=== PATIENT | female | born 1990 | race Caucasian/White ===

== ENCOUNTER 2019-11-05 05:34 | Inpatient (IN) | payer OTHER, SELFPAY ==
[2019-11-05] VITALS (120 sets, daily range): BP systolic 73–149; BP diastolic 45–126; PULSE 72–175; RESP 16; TEMP 36–36.7; O2SAT 96–100; BMI 41.8
[2019-11-05] MEDS: LACTATED RINGERS 1,000 ML 125 ML IV CONT ×3 (07:10→14:09)
[2019-11-05] MEDS: OXYTOCIN 30 UNITS/NS 500 ML 30 UNITS/500 ML BAG IV CONT (07:12)
--- NOTE | 2019-11-05 07:15 | LDADM ---
This patient, Penny Negrete, was admitted to Labor/Delivery/Recovery 108 on 11/05/19 at 05:34. Plans for labor, pain management and were discussed with patient. Patient/family oriented to hospital policies and general routines including ID bracelet, bed and alarms, visiting hours, pain management, procedures, bathroom and other care routines, personal items, smoking policy, room service/diet and guest tray routines, security routines, and visiting hours. Patient/Family are encouraged to report perceived risks to care and to ask questions if they do not understand what they are told or what they should do. See OBIX for further documentation.
[2019-11-05 07:38] LABS: Basophils Percent Auto 0.3 % (0.2-1.2); Eosinophils Absolute Auto 0.1 K/mm3 (0-0.3); Eosinophils Percent Auto 1.1 % (0-4.4); Hematocrit 34.4 % (37.0-47.0); Hemoglobin 11.3 g/dL (12.0-15.0); Immature Granulocyte Absolute 0.11 K/mm3 (0.00-0.031); Immature Granulocyte Percent A 1.4 % (0-0.5); Lymphocytes Absolute Auto 1.37 K/mm3 (0.9-3.2); Mean Corpuscular HGB Conc 32.8 g/dl (32-36); Mean Corpuscular Volume 94.2 fl (80-100); Mean Platelet Volume 11.8 fl (7.4-10.4); Monocytes Absolute Auto 0.7 K/mm3 (0.1-0.6); Monocytes Percent Auto 9.2 % (2.6-8.5); Neutrophils Absolute Auto 5.3 K/mm3 (1.3-6.7); Platelet Count Result 148 k/mm3 (150-375); Red Blood Count 3.65 M/mm3 (4.2-5.4); Red Cell Distribution Width 15.6 % (11.5-14.5); White Blood Count 7.6 K/mm3 (4.5-10.0)
--- NOTE | 2019-11-05 07:44 | P.PNAN_ITS ---
Anes - Eval Pre Procedure Procedure: Labor epidural Date/Time: 11/05/19 07:44 Surgeon: Grey Lazar M.D. Preop Diagnosis: pain during labor Pre Op Diagnosis: induction of labor Patient Data Age: 29 Gender: F Height: 1.73 m Weight: 125 kg Last Vital Signs Pulse 129 H 11/05/19 05:56 BP 124/72 11/05/19 05:56 Pulse Ox 98 11/05/19 06:21 Allergies Allergy/AdvReac Type Severity Reaction Status Date / Time No Known Allergies Allergy Verified 10/16/19 13:38 Home Medications Medication Instructions Recorded Confirmed Type PNV cmb#95-ferrous fumarate-FA 1 tablet PO DAILY 10/16/19 10/16/19 History [] Laboratory Tests 11/05/19 11/05/19 07:05 07:05 WBC Pending RBC Pending Hgb Pending Hct Pending MCV Pending MCH Pending MCHC Pending RDW Pending Plt Count Pending MPV Pending Immature Gran % (Auto) Pending Neut % (Auto) Pending Lymph % (Auto) Pending [place] % (Auto) Pending Eos % (Auto) Pending Baso % (Auto) Pending Lymph # (Auto) Pending [place] # (Auto) Pending Eos # (Auto) Pending Baso # (Auto) Pending Abs Immat Gran (auto) Pending Absolute Neuts (auto) Pending Absolute Nucleated RBC Pending Nucleated RBC % Pending RPR Pending Patient hx anesthesia problems: none Family hx anesthesia problems: none PMFSH Family History Family History (Updated 10/16/19 @ 13:41 by Willian Schwartz RN) Mother Celiac disease Father Diabetes mellitus Grandparent Diabetes mellitus Grandparent Diabetes mellitus Grandparent Diabetes mellitus Social History Social History Smoking packs per day: 0.5 Smoking cigarettes per day: 10.0 Smoking status: Former smoker Tobacco type: cigarettes Second hand tobacco smoke exposure: No Substance use: never Spiritual care concerns: No Exam Day of Procedure 11/05/19 07:44
--- NOTE | 2019-11-05 08:22 | WPDOBADMIT ---
Obstetrics - Admit Note Admission Note: record reviewed. No pertinent additions to the history and/or any subsequent changes in the physical findings that are not consistent with the expected course of the were found. Additions to the history and/or subsequent changes in the physical findings follow. None. Here for elective MIL per Dr. Lazar.. Cervix 4-5/50/-2 AROM with clear fluid. FHTs reactive
[2019-11-05 09:41] LABS: Rapid Plasma Reagin Non-Reactive (NonReactive)
[2019-11-05] MEDS: LACTATED RINGERS 1,000 ML 999 ML IV CONT (10:14)
--- NOTE | 2019-11-05 15:42 | PM.OBPRVD ---
OB - Delivery Note Procedure Delivery date: 11/05/19 events: Labor Induction Induction method: AROM and per pitocin protocol Delivery monitor: external FHT and external uterine Route of delivery: Laceration description: Perineal - 2nd Degree Delivery repair: vicryl Specimen: Yes Estimated blood loss (mL): 250 Disposition: floor Complications: Placenta delivered spontaneously and noted lobe not attached. bimanual performed and removed. bedside ultrasound performed and uterus curette x 1 to confirm removal of tissue. Baby Date of : 11/05/19 Time of : 15:11 Weeks of gestation at delivery: 39 Weight (pounds): 7 Weight (ounces): 8 presentation: vertex score one minute: 8 score five minutes: 9
[2019-11-05] MEDS: OXYTOCIN 30 UNITS/NS 500 ML 30 UNITS/500 ML BAG 125 UNITS IV CONT (15:44)
--- NOTE | 2019-11-05 15:45 | PM.OBDSVD ---
OB - DS: Summary OB Procedures : None OB Procedures Intrapartum: Spontaneous Vag Delivery OB Procedures: : Curettage Peripartum Data Infant Delivery Method: Natural Vaginal Laceration description: Perineal - 2nd Degree complications: none Status at Discharge Functional status at discharge: independent ambulation Overall status at discharge: patient is progressing back to baseline Time Spent with Patient Time attestation: Total time spent providing and/or coordinating discharge services: DS: Data Data Completed and Pending Labs on day of discharge: Labs from last 24 hours 11/05/19 11/05/19 11/05/19 07:05 07:05 07:05 WBC 7.6 RBC 3.65 L Hgb 11.3 L Hct 34.4 L MCV 94.2 MCH 31.0 MCHC 32.8 RDW 15.6 H Plt Count 148 L MPV 11.8 H Immature Gran % (Auto) 1.4 H Neut % (Auto) 70.0 Lymph % (Auto) 18.0 L [place] % (Auto) 9.2 H Eos % (Auto) 1.1 Baso % (Auto) 0.3 Lymph # (Auto) 1.37 [place] # (Auto) 0.7 H Eos # (Auto) 0.1 Baso # (Auto) 0.0 Abs Immat Gran (auto) 0.11 H Absolute Neuts (auto) 5.3 Absolute Nucleated RBC 0.0 Nucleated RBC % 0.0 RPR Non-reactive Blood Type A Positive Antibody Screen Negative Discharge Plan Discharge Attending physician on discharge: Grey Lazar Discharging Clinician: Grey Lazar Anticipated Discharge Date/Time: 11/06/19 17:57 Patient Disposition: Home, Self-Care Activity: may shower and pelvic rest Diet: regular Discharge Instructions: Education: Mom and Baby Guide Given to: Patient Follow-Up: Call your delivering provider's office for an appointment to be seen in: 6 weeks Mom and baby should come to the [facility] for the follow-up appointment. Appointment Date/Time: Tuesday11/07/2019 at 11:00 am Call [phone] if you are unable to keep your appointment time. BREAST CARE: 1. Wear a snug supportive bra. 2. For engorgement discomfort: Breast Feeding: A. Apply warm moist washcloths B. Express milk as needed to relieve engorgement C. Wear loose clothing Bottle Feeding: A. May apply ice packs 3. For sore nipples: A. Identify correct latch-on B. Apply warm moist washcloths before and after nursing C. Air dry nipples after nursing D. May apply Lansinoh cream to nipples EPISIOTOMY/PERINEAL CARE: 1. Until bleeding stops, use your ramon bottle after urinating 2. Change your pad frequently throughout the day 3. You may take sitz baths several times a day (fill your bathtub with warm water and soak for 20 minutes.) Do NOT bathe in the water 4. No tub baths until seen by your physician - You may shower ACTIVITY: 1. Rest as much as possible. 2. Do not exercise or lift anything heavier than your baby (such as laundry or other children.) 3. Avoid stairs or driving as much as possible. 4. Do not put anything into the vagina. No douching, tampons, or sexual activity until seen by physician. NOTIFY PHYSICIAN IF YOU HAVE ANY QUESTIONS OR IF ANY OF THE FOLLOWING SYMPTOMS OCCUR: 1. If your episiotomy or incision becomes red, swollen, or more painful than what you have experienced in the hospital. 2. If your vaginal bleeding becomes foul smelling. 3. If your vaginal bleeding becomes more heavy than a period or if your bleeding changes from pink to bright red. However, you may pass an occasional walnut-sized clot once or twice for the first week . 4. If you experience a sharp, shooting pain in you calves. 5. If you discover a hard, reddened area on your breast or if you experience flu-like symptoms. DIET: 1. Eat regular, well-balanced meals. 2. Drink plenty of fluids daily. If , drink to thirst. Follow-up/Referrals: Grey Lazar MD [Physician] - Discharge Medications: Continued PNV cmb#95-ferrous fumarate-FA [P
--- NOTE | 2019-11-05 18:19 | OBPPTRN ---
Patient transferred to post room #290 via wheelchair. Support person, Eleazar, present. Oriented to unit, room, information board, rooming in, admission packet and security measures. Patient verbalizes understanding.
[2019-11-05] MEDS: LANOLIN (LANSINOH) 7.5 GM CREAM 1 APPLIC TOPICAL (19:25)
[2019-11-05] MEDS: IBUPROFEN 600 MG TABLET PO (19:25)
[2019-11-05] MEDS: WITCH HAZEL 40 PADS 1 PAD TOPICAL (19:25)
[2019-11-05] MEDS: FAMOTIDINE 20 MG TABLET PO (21:48)
[2019-11-06] MEDS: IBUPROFEN 600 MG TABLET PO ×3 (02:15→16:14)
[2019-11-06] MEDS: ACETAMINOPHEN 325 MG TABLET 650 MG PO (02:51)
[2019-11-06 05:47] LABS: Hematocrit 29.3 % (37.0-47.0); Hemoglobin 9.4 g/dL (12.0-15.0)
--- NOTE | 2019-11-06 07:57 | PM.OBPNVD ---
OB - PN: Subj Subjective Date/time seen: 11/06/19 07:57 Patient comments: no complaints and pain well controlled baby status: doing well [place] feeding status: exclusively breast feeding OB - PN: Obj Data Labs CBC & Chem 7: 11/06/19 05:20 Labs: Laboratory Results - last 24 hr 11/05/19 11/05/19 11/06/19 07:05 07:05 05:20 Hgb 9.4 L Hct 29.3 L RPR Non-reactive Blood Type A Positive Antibody Screen Negative OB - PN A/P Plan day: 1 Plan: routine care and discharge home Comments: Plans Depo until vasectomy Time Spent With Patient Time: Total time spent is greater than 50% in coordination of care (as documented) at patient's floor/unit and/or counseling patient: Exam : Bimanual exam- vagina & uterus: other (Uterus firm, nt @U)
[2019-11-06 08:10] VITALS: BP 111/61; PULSE 97; RESP 18; TEMP 36.9; O2SAT 99
--- NOTE | 2019-11-06 09:11 | WPDANLDPN2 ---
Anes-Prog Note L&D Date/Time: 11/06/19 09:11 Comfortable throughout: labor and delivery Neuraxial method: epidural Epidural/Spinal procedure site: clean & non-tender Neuro status: Neuro function grossly intact. Cardiovascular status: normal Respiratory status: normal Airway patency: baseline Mental status: baseline Post-Op hydration status: normal Vital Signs: Last Vital Signs Temp 36.9 C 11/06/19 08:10 Pulse 97 11/06/19 08:10 Resp 18 11/06/19 08:10 BP 111/61 11/06/19 08:10 Pulse Ox 99 11/06/19 08:10 I/O: Intake & Output 11/05/19 11/06/19 11/06/19 23:59 07:59 15:59 Output Total 550 Balance -550 Post-procedural complaints: none Patient feedback: Patient satisfied with anesthetic care.
--- NOTE | 2019-11-06 10:00 | PC.NURSE ---
Consult with pt., mother reports this to be 2nd child to breast feed. Mother breastfed first child for 3 months, reporting she struggled with entire time, due to latch and feeding freq. Mother states this has been sleepy and keeps tongue up and does not allow a deep latch, struggling thru the night and reports has been more wake and opening wider for latch the last few feedings. Mother has just fed on right breast and is now ready to switch to left. Demonstrated stimulation techniques to wake for feeding. Assisted with to breast. Reviewed positioning/alignment in cross cradle, holding breast in U hold and guided asymmetrical latch on. Discussed rational for each. Infant was able to latch correctly. nursed eagerly, with steady draws and frequent swallowing noted. Reviewed signs of a correct latch, effective nursing and suck swallow ratio. Infant was able to maintain latch without discomfort to mother. Nipple care reviewed. Advised to stimulate to keep infant nursing effectively for increased intake and stimulation for milk supply. Demonstrated how to adjust latch more deeply while feeding. Instructed mother to call out for RN assistance if she is unable to latch infant for feeding or she has discomfort with nursing. Instructed feeding should be initiated three hours from start of last feeding or if feeding cues are noted before. Mother voiced understanding of information shared. Reviewed infant feeding cues, frequencies, duration of feedings, feeding elimination flow sheet, and signs of adequate intake. Mother wishes for 24 hour discharge. Mother is feeding as required and waking infant to feed if needed. has had 7 effective feedings in the past 24 hours, and is currently meeting outcomes for weight, output, jaundice and feeding frequencies. Mother states she feels confident to continue effective at home. Reviewed transition to breast milk, signs of adequate intake, and engorgement/relief. Instructed to call ICP if intake/output less than required. Reviewed regular medications mother is taking. Information provided per Kenna. Reviewed community resources on the [employer] website and in the Mom/Baby guide. Information on outpatient services provided. Mother has no further questions at this time.
[2019-11-06] MEDS: POLYSACCHARIDE IRON COMPLEX 150 MG CAPSULE PO ×2 (10:01→16:13)
[2019-11-06] MEDS: MULTIVIT/MIN/PREN/FOL AC/IRON TABLET 1 TAB PO (10:01)
[2019-11-06] MEDS: medroxyPROGESTERone ACETATE IM 150 MG/ML SYR IM (14:12)
[2019-11-06] MEDS: DOCUSATE SODIUM 100 MG CAPSULE PO (16:14)
[2019-11-07 11:23] VITALS: BP 119/68; PULSE 77; RESP 18; TEMP 36.7
== END 2019-11-06 18:20 | disposition home or self-care (01) | DRG 807 ==
LOC: ANHLDR 15:47 → ANHOB2 11-06 07:58 → ANHLDR 11-07 09:06 → ANHOB2 11-07 09:06
PROVIDERS: Admitting Provider Obstetrics & Gynecology; Visit Provider Obstetrics & Gynecology Gynecology
DX: O70.1 Second degree perineal laceration during delivery (principal); Z37.0 Single live birth; Z3A.39 39 weeks gestation of pregnancy; O36.8330 Maternal care for abnormalities of the fetal heart rate or rhythm, third trimester, not applicable or unspecified
CPT/HCPCS: 36415; 85014; 85018; 85025; 86592; 86850; 86900; 86901; 88307; A9270; J1050; J2590; J2795; J3010; J7120

== ENCOUNTER 2021-06-01 17:35 | Emergency (ER) | payer OTHER, SELFPAY ==
[2021-06-01 17:43] VITALS: BP 148/76; PULSE 84; RESP 20; TEMP 36.7; O2SAT 100
--- NOTE | 2021-06-01 18:07 | ED.SKABFB ---
HPI - Skin/Abscess/Foreign Bdy General Chief complaint: Skin/Abscess/Foreign Body Stated complaint: Rash Time Seen by Provider: 06/01/21 17:57 Source: patient and RN notes reviewed Mode of arrival: ambulatory Limitations: no limitations History of Present Illness HPI narrative: Patient presents today complaining of a 3-day history of pain and itching to the left scapular area with a rash. She rates the pain 1/10 at rest, which increases a 6/10 with movement or touching. She has tried no OTC treatment prior to arrival. No new soaps or household products. MD complaint: rash Related Data Home Medications Medication Instructions Recorded Confirmed PNV cmb#95-ferrous fumarate-FA 1 tablet PO DAILY 10/16/19 10/16/19 [] Allergies Allergy/AdvReac Type Severity Reaction Status Date / Time No Known Allergies Allergy Verified 10/16/19 13:38 Review of Systems Review of Systems: CONSTITUTIONAL: Denies body aches, fever, chills, or sweats. EYES: Denies visual changes, redness, or discharge. ENT: Denies rhinorrhea, congestion, sore throat, or otalgia. CARDIOVASCULAR: Denies chest pain, palpitations, or edema. RESPIRATORY: Denies cough or dyspnea. GASTROINTESTINAL: Denies abdominal pain, nausea, vomiting, or diarrhea. GENITOURINARY: Denies dysuria or hematuria. SKIN: Denies wounds.+ Pruritic and painful rash MUSCULOSKELETAL: Denies back pain, joint pain, or myalgia. NEUROLOGIC: Denies headache, numbness, tingling, or weakness. PSYCH: Denies depression or anxiety. [facility] Family History Family History Mother Celiac disease Father Diabetes mellitus Grandparent Diabetes mellitus Grandparent Diabetes mellitus Grandparent Diabetes mellitus Social History Social History Smoking packs per day: 0.5 Smoking cigarettes per day: 10.0 Smoking status: Former smoker Tobacco type: cigarettes Second hand tobacco smoke exposure: No Substance use: never Spiritual care concerns: No Comments At time of signature, I have reviewed and agree with nursing past medical, surgical, social and family history unless otherwise noted. Please see nursing chart for further information. There is no relevant family history pertinent to the presenting complaint Exam Narrative: GENERAL: Well-appearing, well-nourished, and in no acute distress. HEAD: Normocephalic, atraumatic. EYES: EOMI. No redness or drainage. Conjunctivae normal. ENT: Mucous membranes pink and moist. NECK: Normal AROM. CHEST: No respiratory distress. EXTREMITIES: Normal range of motion. No edema. SKIN: Warm, dry. Capillary refill normal. Normal skin turgor. Clusters of erythematous vesicles the left mid back, none passing the midline, consistent with shingles. NEURO: No focal deficits. Alert and oriented x3. Gait steady. PSYCH: Normal affect. No signs of depression or anxiety. Course Vital Signs Vital signs: Vital Signs Temperature 98.1 F 06/01/21 17:43 Pulse Rate 84 06/01/21 17:43 Respiratory Rate 20 06/01/21 17:43 Blood Pressure 148/76 H 06/01/21 17:43 Pulse Oximetry 100 06/01/21 17:43 Temperature 98.1 F 06/01/21 17:43 Pulse Rate 84 06/01/21 17:43 Respiratory Rate 20 06/01/21 17:43 Blood Pressure 148/76 H 06/01/21 17:43 Pulse Oximetry 100 06/01/21 17:43 Reviewed. Pt has been instructed to follow up with her PCP regarding her elevated blood pressure today. MDM - Skin/Abscess/Foreign Bdy Differential Diagnosis Differential diagnosis: Likely viral exanthem, urticaria, herpes zoster, cellulitis, impetigo and contact dermatitis Critical Care Time Critical Care Time Critical Care Time: No Discharge Plan Discharge Clinical Impression: Shingles Qualifiers: Herpes zoster complications: without complications Qualified Code(s): B02.9 - Zoster without complications Patient Di
== END 2021-06-01 18:17 | disposition home or self-care (01) ==
PROVIDERS: Emergency Provider Nurse Practitioner
DX: B02.9 Zoster without complications (principal); Z87.891 Personal history of nicotine dependence; R03.0 Elevated blood-pressure reading, without diagnosis of hypertension
CPT/HCPCS: 99213; G0463

== ENCOUNTER 2021-07-20 10:55 | Emergency (ER) | payer OTHER, SELFPAY ==
[2021-07-20 11:22] VITALS: BP 110/66; PULSE 89; RESP 20; TEMP 36.8; O2SAT 99
--- NOTE | 2021-07-20 12:24 | ED.URI ---
HPI - URI/Sore Throat General Chief Complaint: Upper Respiratory Infection Stated Complaint: Strep Time Seen by Provider: 07/20/21 12:24 Source: patient and RN notes reviewed Mode of arrival: ambulatory Limitations: no limitations History of Present Illness HPI Narrative: 31-year-old female presents concern for 2-week history of nasal congestion, pressure, sinus drainage, sore throat, cough, general malaise. Reports her tested positive for strep throat today. Reports she has been taking [id number] remedies such as Benadryl and Sudafed. Reports Benadryl helps her symptoms temporarily. Reports sinus pain is worse at night. MD elicited complaint: cough, sore throat and nasal congestion Related Data Allergies Allergy/AdvReac Type Severity Reaction Status Date / Time No Known Allergies Allergy Verified 10/16/19 13:38 Review of Systems Review of Systems: CONSTITUTIONAL: Reports malaise. Denies chills, sweats, or fever. EYES: Denies visual changes, redness, or discharge. ENT: Reports rhinorrhea, congestion, sinus pain, otalgia and sore throat. CARDIOVASCULAR: Denies chest pain, palpitations, or edema. RESPIRATORY: Reports cough. Denies dyspnea. GASTROINTESTINAL: Denies abdominal pain, nausea, vomiting, diarrhea SKIN: Denies rash or itching. MUSCULOSKELETAL: Denies myalgia. NEUROLOGIC: Denies headache. All systems reviewed & are unremarkable except as noted in HPI and below PMFSH Family History Family History Mother Celiac disease Father Diabetes mellitus Grandparent Diabetes mellitus Grandparent Diabetes mellitus Grandparent Diabetes mellitus Social History Social History Smoking packs per day: 0.5 Smoking cigarettes per day: 10.0 Smoking status: Former smoker Tobacco type: cigarettes Second hand tobacco smoke exposure: No Substance use: never Spiritual care concerns: No Comments At time of signature, agree with nursing past medical, surgical, social and family history. There is no relevant family history pertinent to the presenting complaint Exam Narrative: GENERAL: Well-appearing, well-nourished, and in no acute distress. HEAD: Normocephalic EYES: PERRLA, conjunctivae clear ENT: Nares clear, turbinates edematous and erythematous. Mucous membranes moist. TM pearly walters with dull light reflex bilaterally; no tragal tenderness. Oropharynx erythematous without lesions. Tonsils enlarged and without exudate, no drooling, no hoarseness, no trismus, uvula midline. NECK: Supple. No lymphadenopathy CHEST: Clear to auscultation, breath sounds equal. No wheezing, rhonchi, rales, or stridor. No respiratory distress, speaks in full sentences. HEART: Regular rate and rhythm. No murmur heard. SKIN: Warm, dry, no rash. NEURO: Alert and oriented x3. PSYCH: Normal mood and affect Course Course Emergency Course: Patient is aware of diagnosis, understands and agrees to treatment plan. Anticipatory guidance given. Patient agrees to follow-up as directed and is aware of reasons to seek care at the emergency department. Portions of this record may have been created with voice recognition software Vital Signs Vital signs: Vital Signs Temperature 98.2 F 07/20/21 11:22 Pulse Rate 89 07/20/21 11:22 Respiratory Rate 20 07/20/21 11:22 Blood Pressure 110/66 07/20/21 11:22 Pulse Oximetry 99 07/20/21 11:22 Temperature 98.2 F 07/20/21 11:22 Pulse Rate 89 07/20/21 11:22 Respiratory Rate 20 07/20/21 11:22 Blood Pressure 110/66 07/20/21 11:22 Pulse Oximetry 99 07/20/21 11:22 Reviewed. MDM - URI/Sore Throat MDM Narrative Medical decision making narrative: Differential diagnosis considered: Louis virus, strep pharyngitis, allergic rhinitis, upper respiratory tract infection, sinusitis, rhinosinusitis, nasopharyngitis. viral pharyngitis, otitis media, otit
== END 2021-07-20 12:40 | disposition home or self-care (01) ==
PROVIDERS: Emergency Provider Nurse Practitioner
DX: J01.90 Acute sinusitis, unspecified (principal); Z87.891 Personal history of nicotine dependence
CPT/HCPCS: 87081; 87880; 99213; G0463

== ENCOUNTER 2022-08-08 08:35 | Emergency (ER) | payer OTHER, SELFPAY ==
[2022-08-08 09:02] VITALS: BP 108/63; PULSE 79; RESP 20; TEMP 36.9; O2SAT 100
--- NOTE | 2022-08-08 09:48 | ED.GENADULT ---
HPI - General Adult General Chief complaint: Upper Respiratory Infection Stated complaint: fever,chills,nausea,sore throat Source: patient Mode of arrival: ambulatory Limitations: no limitations History of Present Illness HPI narrative: Patient presents for evaluation of sick symptoms for last 2 days. Symptoms include sore throat, fever, nausea, fatigue and chills. No vomiting, diarrhea, shortness of breath. No recent sick contacts to her knowledge. No history of COVID. She has received a flu shot this year and has also been vaccinated for COVID in the past. She does not smoke. She is not taking medications to assist with her symptoms. T-max at home 103.0. No additional complaints or concerns. Related Data Home Medications Medication Instructions Recorded Confirmed No Home Medications 08/08/22 08/08/22 Allergies Allergy/AdvReac Type Severity Reaction Status Date / Time No Known Allergies Allergy Verified 08/08/22 09:13 Review of Systems Review of Systems: CONSTITUTIONAL: Reports fever, chills, fatigue. EYES: Denies visual changes, redness, or discharge. ENT: Reports sore throat. Denies rhinorrhea, congestion, or otalgia. CARDIOVASCULAR: Denies chest pain, palpitations, or edema. RESPIRATORY: Denies shortness of breath or cough. GASTROINTESTINAL: Reports nausea. Denies abdominal pain, vomiting, or diarrhea. GENITOURINARY: Denies dysuria or hematuria. SKIN: Denies rash or itching. MUSCULOSKELETAL: Denies back pain, joint pain, or myalgia. NEUROLOGIC: Denies headache, numbness, dizziness, or weakness. PSYCHIATRIC: Denies anxiety or depression. [facility] Past Medical History Medical History (Updated 08/08/22 @ 09:50 by HANY Jones, ) No pertinent past medical history Surgical History Surgical History No pertinent past surgical history Family History Family History Mother Celiac disease Father Diabetes mellitus Grandparent Diabetes mellitus Grandparent Diabetes mellitus Grandparent Diabetes mellitus Social History Social History Smoking packs per day: 0.5 Smoking cigarettes per day: 10.0 Smoking status: Former smoker Tobacco type: cigarettes Second hand tobacco smoke exposure: No Substance use: never Spiritual care concerns: No Exam Narrative: GENERAL: Well-appearing, well-nourished, and in no acute distress. HEAD: Normocephalic, atraumatic. EYES: PERRLA and EOMI. ENT: Nares clear, no rhinorrhea or epistaxis. Mucous membranes moist. Oropharynx without tonsillar hypertrophy exudate or other lesions. Bilateral TMs pearly walters nonbulging NECK: Supple. No adenopathy or masses. No carotid bruits or JVD CHEST: Clear to auscultation. No respiratory distress. No wheezes rales or rhonchi HEART: Regular rate and rhythm. No murmur heard. Normal peripheral pulses. ABDOMEN: Soft, nontender, nondistended, normal active bowel sounds. EXTREMITIES: Normal range of motion. No edema. SKIN: Warm, dry, no rash. NEURO: No focal deficits. Alert and oriented x3. PSYCH: Normal mood and affect. Course Course Emergency Course: This is a 32-year-old female who presented for evaluation of sick symptoms. Influenza negative. COVID positive. Discussed risks versus benefits of Paxlovid. Will avoid use due to potential for rebound. Increase hydration. OTC meds for symptom management. Follow up outpatient for further evaluation. Advised on quarantine. Go to ER for difficulty breathing or swelling. Patient in agreement with plan of care. Level of Care: Express Care Visit Vital Signs Vital signs: Vital Signs Temperature 36.9 C 08/08/22 09:02 Pulse Rate 79 08/08/22 09:02 Respiratory Rate 20 08/08/22 09:02 Blood Pressure 108/63 08/08/22 09:02 Pulse Oximetry 100 08/08/22 09:02 Oxygen
== END 2022-08-08 10:02 | disposition home or self-care (01) ==
PROVIDERS: Emergency Provider Nurse Practitioner
DX: U07.1 COVID-19 (principal); Z87.891 Personal history of nicotine dependence
CPT/HCPCS: 87081; 87426; 87804; 99213; C9803; G0463

== ENCOUNTER 2022-08-31 08:48 | Emergency (ER) | payer OTHER, SELFPAY ==
[2022-08-31 08:50] VITALS: BP 130/72; PULSE 125; RESP 20; TEMP 36.8; O2SAT 100
--- NOTE | 2022-08-31 08:56 | ED.URI ---
HPI - URI/Sore Throat General Chief Complaint: Upper Respiratory Infection Stated Complaint: cold flu Time Seen by Provider: 08/31/22 09:02 Source: patient and RN notes reviewed Mode of arrival: ambulatory Limitations: no limitations History of Present Illness HPI Narrative: 32-year-old female presents with concern for worsening nasal congestion, rhinorrhea, cough. Reports she had COVID 1 month ago and her symptoms have never fully resolved, they worsened over the last several days. Reports she has tried many irtk-sao-ejdyush remedies without relief. MD elicited complaint: cough, sore throat and nasal congestion Related Data Allergies Allergy/AdvReac Type Severity Reaction Status Date / Time No Known Allergies Allergy Verified 08/31/22 09:01 Review of Systems Review of Systems: CONSTITUTIONAL: Reports malaise. Denies chills, sweats, or fever. EYES: Denies visual changes, redness, or discharge. ENT: Reports rhinorrhea, congestion, sinus pain, otalgia and sore throat. CARDIOVASCULAR: Denies chest pain, palpitations, or edema. RESPIRATORY: Reports cough. Denies dyspnea. GASTROINTESTINAL: Denies abdominal pain, nausea, vomiting, diarrhea SKIN: Denies rash or itching. MUSCULOSKELETAL: Denies myalgia. NEUROLOGIC: Denies headache. All systems reviewed & are unremarkable except as noted in HPI and below PMFSH Past Medical History Medical History (Updated 08/31/22 @ 09:04 by Amy Murphy NP) No pertinent past medical history Surgical History Surgical History No pertinent past surgical history Family History Family History Mother Celiac disease Father Diabetes mellitus Grandparent Diabetes mellitus Grandparent Diabetes mellitus Grandparent Diabetes mellitus Social History Social History Smoking packs per day: 0.5 Smoking cigarettes per day: 10.0 Smoking status: Former smoker Tobacco type: cigarettes Second hand tobacco smoke exposure: No Substance use: never Spiritual care concerns: No Comments At time of signature, agree with nursing past medical, surgical, social and family history. There is no relevant family history pertinent to the presenting complaint Exam Narrative: GENERAL: Well-appearing, well-nourished, and in no acute distress. HEAD: Normocephalic EYES: PERRLA, conjunctivae clear ENT: Nares clear, turbinates edematous and erythematous, green discharge. Mucous membranes moist. TM pearly walters with dull light reflex bilaterally; no tragal tenderness. Oropharynx not erythematous without lesions. Tonsils not enlarged and without exudate, no drooling, no hoarseness, no trismus, uvula midline. NECK: Supple. No lymphadenopathy CHEST: Clear to auscultation, breath sounds equal. No wheezing, rhonchi, rales, or stridor. No respiratory distress, speaks in full sentences. Cough noted HEART: Regular rate and rhythm. No murmur heard. SKIN: Warm, dry, no rash. NEURO: Alert and oriented x3. PSYCH: Normal mood and affect Course Course Emergency Course: Patient is aware of diagnosis, understands and agrees to treatment plan. Anticipatory guidance given. Patient agrees to follow-up as directed and is aware of reasons to seek care at the emergency department. Portions of this record may have been created with voice recognition software Level of Care: Express Care Visit Vital Signs Vital signs: Reviewed. MDM - URI/Sore Throat MDM Narrative Medical decision making narrative: Differential diagnosis considered: Louis virus, strep pharyngitis, allergic rhinitis, upper respiratory tract infection, sinusitis, rhinosinusitis, nasopharyngitis. viral pharyngitis, otitis media, otitis externa, pneumonia, bronchitis, viral cough syndrome, viral syndrome, and influenza. Exam findings show no acute concerns or changes; p
== END 2022-08-31 09:12 | disposition home or self-care (01) ==
PROVIDERS: Emergency Provider Nurse Practitioner; PCP Family Medicine
DX: J32.9 Chronic sinusitis, unspecified (principal); J40 Bronchitis, not specified as acute or chronic; Z87.891 Personal history of nicotine dependence
CPT/HCPCS: 99213; G0463

== ENCOUNTER 2024-10-11 10:58 | Emergency (ER) | payer OTHER, SELFPAY ==
--- NOTE | ~2024-10-11 | XR_ITS ---
Right Hand Technique: PA, oblique, and lateral views were obtained. Clinical History: Injury Findings: No acute fracture or dislocation is seen. Osseous alignment is anatomic. Joint spaces are p reserved. Soft tissues are unremarkable. Impression: Unremarkable right hand. Reviewed, dictated and finalized at location M. ONENT ENGINEER Impression: Unremarkable right hand.
[2024-10-11 11:11] VITALS: BP 119/71; PULSE 76; RESP 16; TEMP 36.5; O2SAT 98
--- NOTE | 2024-10-11 11:20 | ED.UPPEXIN ---
HPI - Extremity Injury (Upper) General Chief Complaint: Extremity Injury, Upper Stated Complaint: Right Hand Injury Source: patient Mode of arrival: ambulatory Limitations: no limitations History of Present Illness HPI narrative: 34-year-old female presented for complaint of right hand pain after injury last night. She states while playing she accidentally struck her dog's hip bone while the hand was in a fist and thinks she may have broken the hand. Rates pain 3/10. Endorses pain to the right 5th metacarpal area. Has not taken anything for pain. She did wrap the hand with an Clark wrap. Denies numbness, tingling, weakness, swelling, bruising or deformity. Related Data Home Medications ?Medication ?Instructions ?Recorded ?Confirmed ?Last Taken ?Type escitalopram oxalate 10 mg tablet mg 10/11/24 Unknown History pantoprazole 40 mg tablet,delayed mg PO 10/11/24 Unknown History release Allergies Allergy/AdvReac Type Severity Reaction Status Date / Time No Known Allergies Allergy Verified 10/11/24 11:14 Review of Systems Review of Systems: CONSTITUTIONAL: Denies body aches, fever, chills CARDIOVASCULAR: Denies chest pain, palpitations, or edema. RESPIRATORY: Denies cough or dyspnea. GASTROINTESTINAL: Denies abdominal pain, nausea, vomiting, or diarrhea. SKIN: Denies rash, itching, or wounds. MUSCULOSKELETAL: per HPI NEUROLOGIC: Denies numbness, tingling, or weakness. All systems reviewed & are unremarkable except as noted in HPI and below PMFSH Past Medical History Medical History No pertinent past medical history Surgical History Surgical History No pertinent past surgical history Family History Family History Mother Celiac disease Father Diabetes mellitus Grandparent Diabetes mellitus Grandparent Diabetes mellitus Grandparent Diabetes mellitus Social History Social History Smoking packs per day: 0.5 Smoking cigarettes per day: 10.0 Smoking status: Former smoker Tobacco type: cigarettes Second hand tobacco smoke exposure: No Substance use: never Spiritual care concerns: No Comments At time of signature, I have reviewed and agree with nursing past medical, surgical, social and family history unless otherwise noted. Please see nursing chart for further information. There is no relevant family history pertinent to the presenting complaint Exam Narrative: GENERAL: Well-appearing, well-nourished, and in no acute distress. HEAD: Normocephalic, atraumatic. CHEST: Speaks in full sentences. No respiratory distress. HEART: Regular rate and rhythm. Normal and equal peripheral pulses. EXTREMITIES: Right hand has normal strength and sensation, normal range of motion of digits and wrist, but endorses pain to 5th metacarpal area with movement. Tender with palpation over 5th metacarpal. No swelling or ecchymosis, No open wounds, or obvious deformity; alignment normal, pulse palpable and equal bilaterally, skin warm, dry, pink. Capillary refill less than 3 seconds. SKIN: Warm, dry NEURO: Alert and oriented x3. Course Course Emergency Course: Patient is aware of diagnosis, understands and agrees to treatment plan. Anticipatory guidance given. Patient agrees to follow-up as directed and is aware of reasons to seek care at the emergency department. Portions of this record may have been created with voice recognition software Level of Care: Express Care Visit Vital Signs Vital signs: Vital Signs Temperature 97.7 F 10/11/24 11:11 Pulse Rate 76 10/11/24 11:11 Respiratory Rate 16 10/11/24 11:11 Blood Pressure 119/71 10/11/24 11:11 Pulse Oximetry 98 10/11/24 11:11 Oxygen Delivery Room Air 10/11/24 11:11 Temperature 97.7 F 10/11/24 11:11 Pulse Rate 76 10/11/24 11:11 Respiratory Rate 16 10/11/24 11:11 Blood Pressure 119/71 10/11/24 11:11 Pulse Oximetry 98 10/11/24 11:11 Oxygen Delivery Room Air 10/11/24 11:11 Reviewed MDM - Extremity Injury (Upper) MDM Narrative Medical decision making narrative: Discussed physical exam findings and Xray. CLARK applied. Advised supportive measures and signs/symptoms to go to the ER. Pt is appropriate for outpt treatment and f/u. Differential Diagnosis Differential diagnosis: Likely sprain and strain of wrist, fracture of wrist, finger sprain, dislocation of finger and fracture of hand Imaging Data Radiologist's impression: Patient: Penny Negrete Martir : 1990 MR#: [id number] Age: 34 Acct:[id number] Loc: [facility] ADM Date: 10/11/24Attending Dr: Ordering Physician: China Rosa APRN Date of Service: 10/11/24 Procedure(s): XR hand RT min 3V Accession Number(s): [id number] cc: China Rosa APRN; UNKNOWN,DOCTOR~ Right Hand Technique: PA, oblique, and lateral views were obtained. Clinical History: Injury Findings: No acute fracture or dislocation is seen. Osseous alignment is anatomic. Joint spaces are preserved. Soft tissues are unremarkable. Impression: Unremarkable right hand. Discharge Plan Discharge Clinical Impression: Hand pain, right Patient Disposition: Home, Self-Care Condition: Stable Instructions: Finger Sprain (ED) Additional Instructions: Rest and elevate the right hand, activity as tolerated. Limit pushing pulling lifting until symptoms are fully resolved Apply ice 15-20 minute intervals several times a day Keep it wrapped with CLARK as needed Motrin 800mg every 8 hours, alternate with Tylenol 1000mg every 8 hours as needed Follow up with your primary care provider as needed go to the ER for worsening symptoms or concerns Patient Language: Spanish Prescriptions: No Action codeine-guaifenesin [Virtussin AC] 10-100 mg/5 mL liquid 5 ml PO Q6H PRN (Reason: cough) Qty: 120 0RF methylprednisolone [Medrol (Enrrique)] 4 mg tablets,dose pack See Rx Instructions .ROUTE .COMPLEX Qty: 21 0RF Rx Instructions: orally per package directions amoxicillin-pot clavulanate 875-125 mg tablet 1 tablet PO Q12H 10 Days Qty: 20 0RF pantoprazole 40 mg tablet,delayed release (DR/EC) PO escitalopram oxalate 10 mg tablet Follow-up/Referrals: UNKNOWN,DOCTOR [Primary Care Provider] - Time of Disposition: 12:06
--- OUTSIDE RECORDS SUMMARY | 2024-10-11 11:29 | XMS_ITS | Referral Summary ---
Author Organization [facility] Address [address] [place] [address] Phone Care Team Providers Care Allopathic Doctor Name Role Phone Sydnee Connell NP Primary Care Provider [phone] Encounters Date Type Department Care Team Description 08/31/2024 Telephone [facility] Primary Care at [address] [place] [address] Sydnee Connell NP Appointment from Last 3 Months Allergies No known active allergies Medications SUMAtriptan (IMITREX) 50 mg tabletIndication s:Migraine Take 1 tablet (50 mg total) by mouth once as needed for migraine May repeat after 2 hours. 27 tablet 3 Active dicyclomine (BENTYL) 10 mg capsuleIndicatio ns:Irritable Bowel Syndrome Take 1 capsule (10 mg total) by mouth 4 (four) times a day before meals and nightly 120 capsule [address] (PROTONIX) 40 mg EC tabletIndication s:Stress Ulcer Prophylaxis Take 1 tablet (40 mg total) by mouth daily 90 tablet 1 4 Active escitalopram (LEXAPRO) 10 mg tabletIndication s:Anxiety with Depression Take 1 tablet (10 mg total) by mouth daily 90 tablet 1 4 Active Active Problems Problem Noted Date Diagnosed Date Class 3 severe obesity with serious comorbidity and body mass index (BMI) of 45.0 to 49.9 in adult 07/23/2023 Assessment & Plan (07/23/2023 5:22 AM MEDICATION ADMINISTRATION PROFESSIONAL): Acute on chronic problem- worsening Not at goal of BMI <30 Encouraged to follow heart healthy diet and increase activity to at least 150 min/week BMI Follow-up includes: nutrition counseling, exercise counseling, and education provided. Continue to monitor Episodic cluster headache 07/23/2023 Assessment & Plan (08/05/2023 2:48 PM MEDICATION ADMINISTRATION PROFESSIONAL): Acute on chronic problem- this is recurring problem that is normally well controlled without medication Continue Sumatriptan 50 mg- take half tablet (25 mg)at onset of headache, if not resolved after 2 hours may repeat dose-take as directed Follow up in 3 [id number] Patient educated on medication and side effects Assessment & Plan (07/23/2023 5:18 AM MEDICATION ADMINISTRATION PROFESSIONAL): Acute on chronic problem- this is recurring problem that is normally well controlled without medication Patient has hx of cluster headaches-had tried Maxalt in the past and did not tolerate the medication Will trial Sumatriptan 50 mg- take 1 tablet at onset of headache, if not resolved after 2 hours may repeat dose-take as directed Follow up in 6 [id number] Patient educated on medication and side effects Influenza vaccine needed 07/22/2023 Assessment & Plan (07/23/2023 5:11 AM MEDICATION ADMINISTRATION PROFESSIONAL): Ordered and administered this visit after patient verbally agreed to receive Depression with anxiety 03/29/2023 Assessment & Plan (08/05/2023 2:48 PM MEDICATION ADMINISTRATION PROFESSIONAL): Acute problem- improving, not at goal Continue with Lexapro 10 mg- 1 tablet daily Continue to monitor Patient reiterated no suicidal thoughts at this time; take medication as directed; contact 911 and go to the ER if becomes suicidal Assessment & Plan (07/23/2023 5:21 AM MEDICATION ADMINISTRATION PROFESSIONAL): Acute problem- improving, not at goal Continue with Lexapro 10 mg- 1 tablet daily Continue to monitor Patient reiterated no suicidal thoughts at this time; take medication as directed; contact 911 and go to the ER if becomes suicidal Assessment & Plan (04/13/2023 7:43 PM CDT): Acute problem- improving Continue with Lexapro 10 mg- take 2 half (0.5) tablet daily (patient tablets have been cut in half by pharmacy) to equal full dose of 10 mg Patient reiterated no suicidal thoughts at this time; take medication as directed; contact 911 and go to the ER if becomes suicidal Patient educated on medication and side effects Assessment & Plan (03/29/2023 6:41 PM CDT): Acute problem- this is a new problem Trial Lexapro 10 mg- take half (0.5) tablet daily-will plan to increase in 2 weeks if tolerating and depression not controlled Recommend and highly encouraged to seek behavioral therapy and Psychiatry to help achieve higher percentage of resolution than medication alone Patient reiterated no suicidal thoughts at this time; take medication as directed; contact 911 and go to the ER if becomes suicidal Patient educated on medication and side effects PHQ 2 score= 4 PHQ 9 score= 16 (moderately severe depression) History of iron deficiency anemia 03/29/2023 Assessment & Plan (03/29/2023 6:32 PM CDT): Chronic problem-poorly controlled with current regimen Encouraged to add fortified foods with iron into diet Iron panel labs ordered Plan to start oral iron supplement- ferrous sulfate 65 mg daily-pending lab results Family history of diabetes mellitus 03/29/2023 Assessment & Plan (03/29/2023 6:29 PM CDT): Acute problem- this is a new finding Patient concerned that she may have diabetes due to having recent problems with being lightheaded, dizzy, and shakiness occasionally Fasting labs ordered Will discuss diet and exercise versus oral metformin next visit-pending labs Mixed irritable bowel syndrome 03/29/2023 Assessment & Plan (08/05/2023 2:45 PM MEDICATION ADMINISTRATION PROFESSIONAL): Acute on chronic problem- episodic and worsening over the last couple of weeks Continue Bentyl 10 mg-take 1 tablet QID p.r.n.-patient encouraged to continue with the Bentyl despite the diarrhea, this will help prevent constipation as long as she takes it on an as-needed basis. Recommend taking OTC probiotic or a daily yogurt for intestinal health and to help protect the normal tammi in the gut Will continue to monitor Plan to consult GI if patient unable to tolerate medication on an as-needed basis Encouraged to follow a heart healthy diet and increase activity to at least 150 minutes per week Assessment & Plan (07/23/2023 5:19 AM MEDICATION ADMINISTRATION PROFESSIONAL): Acute on chronic problem- episodic and worsening over the last couple of weeks Will trial Bentyl 10 mg-take 1 tablet QID-patient advised that once she feels regulated and not having any further episodes, she can take on an as needed basis Will continue to monitor Plan to consult GI if no improvement with medication, healthy diet, and exercise Patient educated on medication and side effects Assessment & Plan (03/29/2023 6:34 PM CDT): Acute problem- this is a new problem as stated by patient- has not been truly diagnosed medically Will continue to monitor Plan to consult GI if no improvement with healthy diet and exercise Gastroesophageal reflux disease without esophagi tis 03/29/2023 Assessment & Plan (07/23/2023 5:15 AM MEDICATION ADMINISTRATION PROFESSIONAL): HPI: Condition is stable Continue on current meds pantoprazole 40 mg daily Encouraged to follow healthy diet and exercise Avoid trigger foods including: carbonated beverages, caffeine, spicy, fried foods, tomatoes, cucumbers, mint, and acidic fruits/juices like orange/lemon/grapefruit. Avoid eating/drinking anything for at least 2 hours before bed. Sleep with bed propped. Discussed that long-term use of proton pump inhibitors (PPIs) can cause low vitamin B12, low magnesium, diarrhea, C diff, osteoporosis-weakening of bones and kidney problems, pt would like to remain on medication at this time Assessment & Plan (04/13/2023 7:41 PM CDT): Acute problem- improving with current regimen continue with pantoprazole 40 mg daily-refills sent this visit Encouraged to avoid foods that are spicy, greasy, fried, or fatty Avoid fruits and juices that are acidic Assessment & Plan (03/29/2023 6:30 PM CDT): Acute problem- poorly controlled with current regimen Will do 8 week trial of PPI ordered pantoprazole 40 mg daily Plan to consult GI if no improvement with 8 week trial Encouraged to avoid foods that are spicy, greasy, fried, or fatty Avoid fruits and juices that are acidic Resolved Problems Problem Noted Date Diagnosed Date Resolved Date Encounter for routine adult health examination with abnormal findings 03/29/202309/17 Assessment & Plan (03/29/2023 6:32 PM CDT): Recommend flu vaccine every May, Tetanus every 10 years (will order for next visit-patient thinks she had with her last child 3 years ago, but unsure) Fasting labs ordered Consult placed for Reed Man Follow up in 2 weeks- depression, new medication, labs Class 3 severe obesity with serious comorbidity and body mass index (BMI) of 40.0 to 44.9 in adult 03/29/2023 07/23/2023 Assessment & Plan (03/29/2023 6:40 PM CDT): Acute problem- this is a new finding Recommend healthy diet- low fat, low chol, low carb Increase activity to 30 min/day, 150 min/week Portion control would be beneficialDiscussed hand measurements with patient. A fist or cupped hand = 1 cup 1 cup = 1 -2 servings of fruit juice 1 oz. of cold cereal 2 oz. of cooked cereal, rice or pasta 8 oz. of milk or yogurt A thumb = 1 oz. of cheese Consuming low-fat cheese helps you meet the required servings from the milk, yogurt and cheese group. 1 oz. of low-fat cheese counts as 8 oz. of milk or yogurt. Handful = 1-2 oz. of snack food Thumb tip = 1 teaspoon Keep high-fat foods, such as peanut butter and mayonnaise, at a minimum. One teaspoon is equal to the end of your thumb, from the knuckle up. Three teaspoons equals 1 tablespoon. Palm = 3 oz. of meat Choose lean poultry, fish, shellfish and beef. One palm size portion equals 3 oz. for an adult and 1 -2 oz. for a child under 5. 1 tennis ball or a fist= 1/2 cup of fruit and vegetables Healthy diets include a variety of colorful fruits and vegetables every day. The secret to serving size is in your hand. Snacking can add up. Remember, 1 handful equals 1 oz. of nuts and small candies. For chips and pretzels, 2 handfuls equals 1 oz. Because hand sizes vary, compare your fist size to an actual measuring cup. Plan to discuss bariatric consult if no improvement in 4 months with healthy diet and exercise Continue to monitor weight Immunizations Immunization Administration Dates Next Due DTP 11/14/1991, 1,1988,06/18 DTaP 03/31/1994 Hep B, Unspecified 12/01/2000, 0,05/11/2000,04/06 Hib (PRP-T) 11/14/1991 Influenza, Quadrivalent, Jeanna l Culture-based MDCK, Preservative Free, Antibiotic Free, Intramuscular 08/20/2021 Influenza, Quadrivalent, Spl it, Preservative Free, Intramuscular 07/22/2023,07/21/2022,07/12/2020 Influenza, Unspecified 06/09/2024 MMR 03/31/1994,08/30/1990 OPV 03/31/1994, 1,1988,06/18 Td, adsorbed 03/23/2004 Social History Tobacco Use Types Packs/Day Years Used Date Smoking Tobacco: Former Cigarettes Tobacco Cessation:Counseling Given: Not Answered AUDIT-C Answer Date Recorded Q1: How often do you have a drink containing alcohol? Never 08/05/2023 Q2: How many drinks containi ng alcohol do you have on a typical day when you are drinking? Patient does not drink Q3: How often do you have si x or more drinks on one occasion? Never 08/05/2023 PHQ-2 Answer Date Recorded PHQ-2 Total Score (If total score is 3 or more points, staff should administer the PHQ-9) 0 08/05/2023 Personal Safety Answer Date Recorded Getting School Help Needed Not on file 08/05 Comments Unknown Sex and Gender Information Value Date Recorded Sex Assigned at Not on file Legal Sex Female 9:23 AM MEDICATION ADMINISTRATION PROFESSIONAL Gender Identity Not on file Sexual Orientation Not on file Last Filed Vital Signs Vital Sign Reading Time Taken Comments Blood Pressure 104/80 08/05/2023 2:21 PM MEDICATION ADMINISTRATION PROFESSIONAL Pulse 86 08/05/2023 2:21 PM MEDICATION ADMINISTRATION PROFESSIONAL Temperature - - Respiratory Rate 16 04/12/2023 2:32 PM CDT Oxygen Saturation 98% 08/05/2023 2:21 PM MEDICATION ADMINISTRATION PROFESSIONAL Inhaled Oxygen Concentration - - Weight 132 kg (291 lb) 08/05/2023 2:21 PM MEDICATION ADMINISTRATION PROFESSIONAL Height 170.2 cm (5' 7 ) 08/05/2023 2:21 PM MEDICATION ADMINISTRATION PROFESSIONAL Body Mass Index 45.58 08/05/2023 2:21 PM MEDICATION ADMINISTRATION PROFESSIONAL Plan of Treatment Not on file Procedures Procedure Name Priority Date/Time Associated Diagnosis Comments HEPATITIS PANEL, ACUTE Routine 04/01/2023 10:37 AM CDT Healthcare maintenance Abnormal glucose affecting Lightheadedness from Last 3 Months or Most Recently Relevant to Health Maintenance Results * Hepatitis panel, acute (04/01/2023 10:37 AM CDT) Hep A IgM Nonreactive Nonreactive RENEE GAR (SEVEN) Comment: Interpretive Data: If Hep A IgM Ab is reported as Equivocal, a new sample should be drawn in two weeks for testing. Current interpretive data was last revised on 19. Testing performed by: [address] [address] Hep B core IgM Nonreactive Nonreactive Amira GAR (SEVEN) Comment: Interpretive Data If HepB Core IgM Ab is reported as Equivocal, a new sample should be drawn in two weeks for testing. Current interpretive data was last revised on 19. Testing performed by: [address] [address] Hep C Ab Nonreactive Nonreactive RENEE GAR (SEVEN) Comment: Interpretive Data Nonreactive: Antibodies to HCV not detected. Does NOT exclude the possibility of recent exposure to HCV. Equivocal: Equivocal for HCV antibodies. Supplemental molecular testing will be automatically performed to determine infection status in accordance with current CDC screening recommendations. Reactive: Positive for HCV antibodies. This may represent current or past HCV infection. Supplemental molecular testing will be automatically performed to determine current infection status in accordance with current CDC screening recommendations. Interpretive data was last revised on 2019. Testing performed by: [address] [place] [address] HepBsAg Nonreactive Nonreactive RENEE GAR (SEVEN) Comment:Testing performed by : [facility], [address] [place] [address]., [id number] Blood 04/01/2023 10:3 7 AM CDT 04/01/2023 3:48 PM CDT Sydnee Connell NP LAB MICROBIOLOGY - GENERAL ORD ERABLES Final Result RENEE GAR (SEVEN) [address] [facility] Department [place] [address] from Last 3 Months or Most Recently Relevant to Health Maintenance Insurance [facility] Care Teams Allopathic Doctor Relationship Specialty Start Date End Date Sydnee Connell, ANCIENT ART CURATOR PCP - General Nurse Practitioner 03/29/23
--- OUTSIDE RECORDS SUMMARY | 2024-10-11 11:29 | XMS_ITS | Continuity of Care Document ---
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 tel:[phone] Family History Family Member Type Diagnosis Age At Onset No Information Payers Payer name Insurance type Covered green party ID Authoriza iris(s) [facility] PPO [id number] Social History Type Description Quantity Date Captured Comments Sex Female Smoking Status No Information Chief Complaint And Reason For Visit No Information History Of Present Illness Encounter Date Complaint History Of Prese nt Illness No Information Instructions Date Instruction Additional Infor mation No Information Assessments Type Assessment Date No Information
--- OUTSIDE RECORDS SUMMARY | 2024-10-11 11:29 | XMS_ITS | Clinical Summary ---
Author Organization [facility] Address [address] [place] [address] Phone Care Team Providers Care Senior Product Development Engineer Name Role Phone Unavailable Primary Care Provider Unavailabl e Allergies No known active allergies Medications oxyCODONE-acetam inophen (PERCOCET) 5-325 mg Oral tablet Take 1 Tab by mouth every 4 hours as needed for Pain, Moderate. 20 Tab None 12/20/2011 Active ibuprofen (MOTRIN) 800 mg Oral tablet Take 1 Tab by mouth every 8 hours as needed for Pain, Mild. 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 SOFTWARE EDUCATOR Gender Identity Not on file Sexual Orientation Not on file Last Filed Vital Signs Vital Sign Reading Time Taken Comments Blood Pressure 116/59 12/20/2011 8:00 AM CDT Pulse 127 12/20/2011 2:15 AM CDT Temperature 36.3 C (97.4 F) 12/20/2011 4:08 AM CDT Respiratory Rate 18 12/20/2011 8:00 AM CDT Oxygen Saturation 97% 12/20/2011 8:00 AM CDT Inhaled Oxygen Concentration - - Weight 81.6 kg (180 lb) 12/20/2011 2:15 AM CDT Height 170.2 cm (5' 7 ) 12/20/2011 2:15 AM CDT Body Mass Index 28.19 12/20/2011 2:15 AM CDT Plan of Treatment Health Maintenance Due Date Last Done Comments DTAP/TDAP/TD VACCINES (1 - Tdap) 2007 HEPATITIS B VACCINES (1 of 3 - 19+ 3-dose series) 2007 CERVICAL CANCER SCREENING 2018 INFLUENZA VACCINE (#1) 2024 HPV VACCINES Aged Out No longer eligi ble based on patient's age to complete this topic PNEUMOCOCCAL VACCINE 0-64 YEARS Aged Out No longer eligible based on patient's age to complete this topic Insurance [facility] BLUE ACCESS/TRUE BLUE PPO
--- OUTSIDE RECORDS SUMMARY | 2024-10-11 11:29 | XMS_ITS | Clinical Summary ---
Author Organization [facility] Address [address] [facility] [address] [place] [address] Phone Care Team Providers Care Flight Teacher Name Role Phone Sydnee Connell NP Primary Care Provider [phone] Allergies No known active allergies Medications SUMAtriptan [...] 07/23/2023 Assessment & Plan (07/23/2023 5:22 AM EQUITY TRADER): Acute on chronic problem- worsening Not at goal of BMI <30 Encouraged to follow heart healthy diet and increase activity to at least 150 min/week BMI Follow-up includes: nutrition counseling, exercise counseling, and education provided. Continue to monitor Episodic cluster headache 07/23/2023 Assessment & Plan (08/05/2023 2:48 PM EQUITY TRADER): Acute on chronic problem- this is recurring problem that is normally well controlled without medication Continue Sumatriptan 50 mg- take half tablet (25 mg)at onset of headache, if not resolved after 2 hours may repeat dose-take as directed Follow up in 3 [id number] Patient educated on medication and side effects Assessment & Plan (07/23/2023 5:18 AM EQUITY TRADER): Acute on chronic problem- this is recurring problem that is normally well controlled without medication Patient has hx of cluster headaches-had tried Maxalt in the past and did not tolerate the medication Will trial Sumatriptan 50 mg- take 1 tablet at onset of headache, if not resolved after 2 hours may repeat dose-take as directed Follow up in 6 [id number] Patient educated on medication and side effects Influenza vaccine needed 07/22/2023 Assessment & Plan (07/23/2023 5:11 AM EQUITY TRADER): Ordered and administered this visit after patient verbally agreed to receive Depression with anxiety 03/29/2023 Assessment & Plan (08/05/2023 2:48 PM EQUITY TRADER): Acute problem- improving, not at goal Continue with Lexapro 10 mg- 1 tablet daily Continue to monitor Patient reiterated no suicidal thoughts at this time; take medication as directed; contact 911 and go to the ER if becomes suicidal Assessment & Plan (07/23/2023 5:21 AM EQUITY TRADER): Acute problem- improving, not at goal Continue [...] 03/29/2023 Assessment & Plan (08/05/2023 2:45 PM EQUITY TRADER): Acute on chronic problem- episodic and worsening over the last couple of weeks Continue Bentyl 10 mg-take 1 tablet QID p.r.n.-patient encouraged to continue with the Bentyl despite the diarrhea, this will help prevent constipation as long as she takes it on an as-needed basis. Recommend taking OTC probiotic or a daily yogurt for intestinal health and to help protect the normal tmami in the gut Will continue to monitor Plan to consult GI if patient unable to tolerate medication on an as-needed basis Encouraged to follow a heart healthy diet and increase activity to at least 150 minutes per week Assessment & Plan (07/23/2023 5:19 AM EQUITY TRADER): Acute on chronic problem- episodic and worsening [...] 03/29/2023 Assessment & Plan (07/23/2023 5:15 AM EQUITY TRADER): HPI: Condition is stable Continue on current [...] unsure) Fasting labs ordered Consult placed for Re Etcher Follow up in 2 weeks- depression, new [...] diet and exercise Continue to monitor weight Encounters Date Type Department Care Team Description 08/31/2024 Telephone [facility] Primary Care at [address] [place] [address] Sydnee Connell, PLAIN GOODS HEMMER Appointment from Last 3 Months Immunizations Immunization Administration Dates Next Due DTP 11/14/1991, 1,1988,06/18 DTaP 03/31/1994 Hep B, Unspecified 12/01/2000, 0,05/11/2000,04/06 Hib (PRP-T) 11/14/1991 Influenza, Quadrivalent, Jeanna l Culture-based MDCK, Preservative Free, Antibiotic Free, Intramuscular 08/20/2021 Influenza, Quadrivalent, Spl it, Preservative Free, Intramuscular 07/22/2023,07/21/2022,07/12/2020 Influenza, Unspecified 06/09/2024 MMR 03/31/1994,08/30/1990 OPV 03/31/1994, 1,1988,06/18 Td, adsorbed 03/23/2004 Medical History Medical History Date Comments Class 3 severe obesity with serious comorbidity and body mass index (BMI) of 40.0 to 44.9 in adult (HCC) 03/29/2023 Social History Tobacco Use Types Packs/Day Years [...] on file Legal Sex Female 9:23 AM EQUITY TRADER Gender Identity Not on file Sexual Orientation Not on file Obstetrics History Last Filed Vital Signs Vital Sign Reading Time Taken Comments Blood Pressure 104/80 08/05/2023 2:21 PM EQUITY TRADER Pulse 86 08/05/2023 2:21 PM EQUITY TRADER Temperature - - Respiratory Rate 16 04/12/2023 2:32 PM CDT Oxygen Saturation 98% 08/05/2023 2:21 PM EQUITY TRADER Inhaled Oxygen Concentration - - Weight 132 kg (291 lb) 08/05/2023 2:21 PM EQUITY TRADER Height 170.2 cm (5' 7 ) 08/05/2023 2:21 PM EQUITY TRADER Body Mass Index 45.58 08/05/2023 2:21 PM EQUITY TRADER Plan of Treatment Health Maintenance Due Date Last Done Comments Cervical Cancer Screening 1988 DTaP/Tdap/Td Vaccine (6 - Tdap) 03/24/2004 03/23/2004, 03/31/1994, 11/14/1991, Additional history exists Regular Well Visit/Exam 18-64 03/29/2024 03/29/2023, 03/29/2023 Covid-19 Vaccine ( season) 2024 09/10/2021, 08/20/2021 Depression Screening 08/05/2024 08/05/2023, 07/22/2023, 04/12/2023, Additional history exists Hepatitis B Screening Completed 12/01/2000 , 07/06/2000, 05/11/2000, Additional history exists Hepatitis C Screening Completed 04/01/2023 Influenza Vaccine Completed 06/09/2024, , 07/21/2022, Additional history exists HPV Vaccines Aged Out No longer eligi ble based on patient's age to complete this topic Pneumococcal vaccine <65 Aged Out No longer eligible based on patient's age to complete this topic Varicella Vaccines Discontinued Procedures Procedure Name Priority Date/Time Associated Diagnosis [...] last revised on 19. Testing performed by: [facility], [address] [place] [address]., [id number] Hep B core IgM Nonreactive Nonreactive C KIRBYER RIN (SEVEN) Comment: Interpretive Data If HepB Core IgM Ab is reported as Equivocal, a new sample should be drawn in two weeks for testing. Current interpretive data was last revised on 19. Testing performed by: [facility], [address] [place] [address]., [id number] Hep C Ab Nonreactive Nonreactive RENEE GAR [...] last revised on 2019. Testing performed by: [facility], [address] [place] [address]., [id number] HepBsAg Nonreactive Nonreactive RENEE GAR (SEVEN) Comment:Testing performed by : [facility], [address] [place] [address]., [id number] Blood 04/01/2023 10:3 7 AM CDT 04/01/2023 3:48 PM CDT us Sydnee Connell NP LAB MICROBIOLOGY - GENERAL ORD ERABLES Final Result RENEE RIN ([place] VARINA) [address] [facility] Department of [employer] [place], [place] [id number] from Last 3 Months or Most Recently Relevant to Health Maintenance Insurance [employer] [place] [employer] [place] Care Teams Flight Teacher Relationship Specialty Start Date End Date Sydnee Connell NP PCP - General Nurse Practitioner 03/29/23
--- OUTSIDE RECORDS SUMMARY | 2024-10-11 11:29 | XMS_ITS | Clinical Summary ---
Author Organization [facility] Address [address] [place] [address] Phone Care Team Providers Care Guillotine Operator Name Role Phone Provider, None Primary Care Provider Unavailabl e Allergies No known active allergies Medications No known medications Social History Tobacco Use Types Packs/Day Years Used Date Smoking Tobacco: Every Day Cigarettes Smokeless Tobacco: Current Comments No Sex and Gender Information Value Date Recorded Sex Assigned at Not on file Legal Sex Female 4:36 AM CDT Gender Identity Not on file Sexual Orientation Not on file Last Filed Vital Signs Vital Sign Reading Time Taken Comments Blood Pressure 120/102 01/31/2021 4:42 AM CDT Pulse 99 01/31/2021 4:42 AM CDT Temperature 36.6 C (97.8 F) 01/31/2021 4:42 AM CDT Respiratory Rate 13 01/31/2021 4:42 AM CDT Oxygen Saturation 100% 01/31/2021 4:42 AM CDT Inhaled Oxygen Concentration - - Weight 120.2 kg (265 lb) 01/31/2021 4:42 AM CDT Height 172.7 cm (5' 8 ) 01/31/2021 4:42 AM CDT Body Mass Index 40.29 01/31/2021 4:42 AM CDT Plan of Treatment Not on file Insurance MEDICAID [employer] Care Teams Guillotine Operator Relationship Specialty Start Date End Date Provider, None [place] PCP - General 01/31/21
--- OUTSIDE RECORDS SUMMARY | 2024-10-11 11:31 | XMS_ITS | Continuity of Care Document ---
Author Organization [facility] Address [address] [place] [address] Phone Care Team Providers Care Mud Mixer Operator Name Role Phone Unavailable Unavailable Unavailable Advance Directives Directive Yes / No Effective Date File Name No Information Encounters Encounter Description Practice Location Reason(s) For Visit Diagnoses Date Provider Providers Copied on Encounter [facility], [address] [facility], [place], [place], [id number], [place] tel:[phone] [facility] No Information No Information Referring Provider: JUANA HILL L, [address], [place], [address]. tel:[phone] Family History Family Member Type Diagnosis Age At Onset No Information Payers Payer name Insurance type Covered republican ID Authoriza iris(s) [facility] PPO [id number] Social History Type Description Quantity Date Captured Comments Sex Female Smoking Status No Information Chief Complaint And Reason For Visit No Information History Of Present Illness Encounter Date Complaint History Of Prese nt Illness No Information Instructions Date Instruction Additional Infor mation No Information Assessments Type Assessment Date No Information
== END 2024-10-11 12:13 | disposition home or self-care (01) ==
PROVIDERS: Emergency Provider Nurse Practitioner Family
DX: M79.641 Pain in right hand (principal); F17.210 Nicotine dependence, cigarettes, uncomplicated
CPT/HCPCS: 73130; 99213; G0463

== ENCOUNTER 2024-12-07 15:17 | Emergency (ER) | payer OTHER, SELFPAY ==
--- OUTSIDE RECORDS SUMMARY | 2024-12-07 15:20 | XMS_ITS | Clinical Summary ---
Author Organization [facility] Address [address] [facility] [address] [place] [phone] Phone Care Team Providers Care Banquet Stewardess Name Role Phone Lyndsey Lopez NP Primary Care Provider Allergies No known active allergies Medications dicyclomine (BENTYL) 10 mg capsuleIndicati ons:Irritable Bowel Syndrome Take 1 capsule (10 mg total) by mouth 4 (four) times a day before meals and nightly 120 capsule 11 3 Active Additional Information Patient not taking.Reported on 11/15/2024 topiramate (TOPAMAX) 25 mg tabletIndicatio ns:Intractable episodic cluster headache,Class 3 severe obesity with serious comorbidity and body mass index (BMI) of 45.0 to 49.9 in adult, unspecified obesity type (HCC) Take 1 tablet (25 mg total) by mouth 2 (two) times a day 180 tablet 5 026 Active escitalopram (LEXAPRO) 10 mg tabletIndicatio ns:Anxiety with Depression Take 1 tablet (10 mg total) by mouth daily 90 tablet [address] (PROTONIX) 40 mg EC tabletIndicatio ns:Stress Ulcer Prophylaxis Take 1 tablet (40 mg total) by mouth daily 90 tablet 3 5 Active spironolactone (ALDACTONE) 50 mg tabletIndicatio ns:Abnormal facial hair Take 1 tablet (50 mg total) by mouth daily 90 tablet 5 Active rimegepant (NURTEC ODT) tablet,disinteg ratingIndicatio ns:Migraine Take 1 tablet (75 mg total) by mouth daily as needed (Migraine headaches) 16 tablet 5 025 Active SUMAtriptan (IMITREX) 50 mg tabletIndicatio ns:Migraine Take 1 tablet (50 mg total) by mouth once as needed for migraine May repeat after 2 hours. 27 tablet 3 025 Discontin ued(Alter batool therapy) pantoprazole DR (PROTONIX) 40 mg EC tabletIndicatio ns:Stress Ulcer Prophylaxis Take 1 tablet (40 mg total) by mouth daily 90 tablet 1 4 025 Discontin ued(Reord er) escitalopram (LEXAPRO) 10 mg tabletIndicatio ns:Anxiety with Depression Take 1 tablet (10 mg total) by mouth daily 90 tablet 1 4 025 Discontin ued(Reord er) rimegepant (NURTEC ODT) tablet,disinteg ratingIndicatio ns:Migraine Take 1 tablet (75 mg total) by mouth daily as needed (Migraine headaches) 8 tablet 1 5 025 Discontin ued(Reord er) Active Problems Problem Noted Date Diagnosed Date Preventative health care 11/15/2024 Assessment & Plan (11/15/2024 10:38 AM CDT): - New or chronic worsening conditions: abnormal facial hair, wt loss, headaches - Mental health: no significant psychiatric/mental health conditions affecting her day to day functioning - Dental health: Up to date with regular dental care and cleaning. Discussed importance of regular tooth brushing, flossing, and dental visits. - Nutrition: Stressed importance of moderation in sodium/caffeine intake, saturated fat and cholesterol, caloric balance, sufficient intake of fresh fruits, vegetables - Exercise: Stressed the importance of regular exercise - Immunizations: Age and sex appropriate immunizations reviewed and offered - Cervical Cancer screening: Recommended, referral placed - Breast Cancer screening: Not indicated at this time - Colon cancer screening: Not indicated at this time - Lung cancer screening: Not indicated at this time - Bone desnity/osteoporosis screening: Not indicated at this time - control: condoms Abnormal facial hair 11/15/2024 Assessment & Plan (11/15/2024 10:44 AM CDT): -New concern -Patient endorses ongoing difficulty facial/chin hair -Patient denies any previous diagnosis of insulin resistance or PCOS -Lab work ordered as part of evaluation; will determine further management once results are available -Continue current treatment plan Class 3 severe obesity with serious comorbidity and body mass index (BMI) of 45.0 to 49.9 in adult 07/23/2023 Overview (11/15/2024): Weight goal Assessment & Plan (11/15/2024 10:40 AM CDT): Wt Readings from Last 3 Encounters: 11/15/24 135.3 kg (298 lb 4.8 oz) 08/05/23 132 kg (291 lb) 07/22/23 132.5 kg (292 lb) Body mass index is 46.71 kg/m . -Stable, not at goal of <30 bmi -Discussed recommendations for exercise at least 30 minutes moderate to vigorous exercise as tolerated most days of the week. (minimum 150 minutes weekly) -Discussed importance of well-balanced diet -patient expressed interest with weight loss medication -Starting weight of 298 -discussed risks and benefits of weight loss medication options -Topiramate 25 mg b.i.d. prescribed -follow up in 4-6 weeks for re-evaluation Assessment & Plan (07/23/2023 5:22 AM SHIP MATE): Acute on chronic problem- worsening Not at goal of BMI <30 Encouraged to follow heart healthy diet and increase activity to at least 150 min/week BMI Follow-up includes: nutrition counseling, exercise counseling, and education provided. Continue to monitor Episodic cluster headache 07/23/2023 Assessment & Plan (11/15/2024 10:43 AM CDT): -chronic, not well-controlled -patient currently takes OTC Tylenol/ibuprofen -Failed Triptan therapy, previously took Imitrex with no improvement -patient reports having migraine/cluster headache frequently to almost daily -Topiramate 25 mg b.i.d. prescribed as preventative, Nurtec 75 mg as needed prescribed as rescue medicine -continue current treatment plan Assessment & Plan (08/05/2023 2:48 PM SHIP MATE): Acute on chronic problem- this is recurring problem that is normally well controlled without medication Continue Sumatriptan 50 mg- take half tablet (25 mg)at onset of headache, if not resolved after 2 hours may repeat dose-take as directed Follow up in 3 [id number] Patient educated on medication and side effects Assessment & Plan (07/23/2023 5:18 AM SHIP MATE): Acute on chronic problem- this is recurring problem that is normally well controlled without medication Patient has hx of cluster headaches-had tried Maxalt in the past and did not tolerate the medication Will trial Sumatriptan 50 mg- take 1 tablet at onset of headache, if not resolved after 2 hours may repeat dose-take as directed Follow up in 6 [id number] Patient educated on medication and side effects Influenza vaccine needed 07/22/2023 Assessment & Plan (07/23/2023 5:11 AM SHIP MATE): Ordered and administered this visit after patient verbally agreed to receive Depression with anxiety 03/29/2023 Assessment & Plan (11/15/2024 10:41 AM CDT): -chronic, controlled -patient currently takes Lexapro 10 mg daily -patient denies any worsening of depressed mood, thoughts of harming themselves or others, or worsening anxiety -refill of medication provided -continue current treatment plan Assessment & Plan (08/05/2023 2:48 PM SHIP MATE): Acute problem- improving, not at goal Continue with Lexapro 10 mg- 1 tablet daily Continue to monitor Patient reiterated no suicidal thoughts at this time; take medication as directed; contact 911 and go to the ER if becomes suicidal Assessment & Plan (07/23/2023 5:21 AM SHIP MATE): Acute problem- improving, not at goal Continue [...] 03/29/2023 Assessment & Plan (08/05/2023 2:45 PM SHIP MATE): Acute on chronic problem- episodic and worsening [...] week Assessment & Plan (07/23/2023 5:19 AM SHIP MATE): Acute on chronic problem- episodic and worsening [...] without esophagi tis 03/29/2023 Assessment & Plan (11/15/2024 10:41 AM CDT): -chronic, controlled -patient currently takes pantoprazole 40 mg daily -patient encouraged to continue avoiding trigger foods and remaining upright at least 30 minutes after eating or drinking -refill of medication provided -continue current treatment plan Assessment & Plan (07/23/2023 5:15 AM SHIP MATE): HPI: Condition is stable Continue on current [...] unsure) Fasting labs ordered Consult placed for Structural Manager Follow up in 2 weeks- depression, new [...] Encounters Date Type Department Care Team Description 11/29/2024 Telephone [facility] Primary Care at [address] [phone] Lyndsey Lopez NP Prior Auth (Medication Nurtec) 11/29/2024 Orders Only [facility] at [address] [phone] Lyndsey Lopez NP Intractable episodic cluster headache 11/20/2024 Results Follow-Up [facility] Primary Care at [address] [phone] Lyndsey Lopez, JANELLE Abnormal facial hair (Primary Dx) 11/17/2024 7:10 AM CDT Lab [facility] [address] [place] [address] Abnormal facial hair; Preventative health care; Encounter for screening examination for impaired glucose regulation and diabetes mellitus; Screening for lipid disorders; Screening for thyroid disorder 11/15/2024 10:00 AM CDT Office Visit [facility] Primary Care at [address] [phone] Lyndsey Lopez NP Establishing care with new doctor, encounter for (Primary Dx); Preventative health care; Depression with anxiety; Intractable episodic cluster headache; Gastroesophageal reflux disease without esophagitis; Abnormal facial hair; Class 3 severe obesity with serious comorbidity and body mass index (BMI) of 45.0 to 49.9 in adult, unspecified obesity type (HCC); Encounter for screening examination for impaired glucose regulation and diabetes mellitus; Screening for thyroid disorder; Screening for lipid disorders 11/15/2024 Telephone [facility] Care at [address] [place] [address] Lyndsey Lopez, JANELLE Prior Auth-rimegepant ([facility]DT). 11/15/2024 Orders Only [facility] Primary Care at [address] [place] [address] Lydnsey Lopez, JANELLE Well woman exam (Primary Dx) from Last 3 Months Immunizations Immunization Administration [...] 40.0 to 44.9 in adult (HCC) 03/29/2023 Migraines GERD (gastroesophageal reflux disease) Anxiety Depression Family History Medical History Relation Name Comments Depression Brother 1 Obesity Brother 1 Depression Brother 2 Obesity Brother 2 Diabetes Father Diabetes Maternal Grandfather Heart disease Maternal Grandmother Obesity Maternal Grandmother Anemia Mother Celiac disease Mother Depression Mother Obesity Mother Diabetes Paternal Grandmother Anemia Sister Depression Sister Obesity Sister Relation Name Status Comments Brother 1 Alive Brother 2 Alive Father Alive Maternal Grandfather Maternal Grandmother Mother Alive Paternal Grandfather Unknown Paternal Grandmother Sister Alive Social History Tobacco Use Types Packs/Day Years Used Date Smoking Tobacco: Former Cigarettes 0.3 17 2 - 2020 AUDIT-C Answer Date Recorded Q1: How often do you have a drink containing alcohol? Never 11/15/2024 Q2: How many drinks containi ng alcohol do you have on a typical day when you are drinking? Patient does not drink Q3: How often do you have si x or more drinks on one occasion? Never 11/15/2024 PHQ-2 Answer Date Recorded PHQ-2 Total Score (If total score is 3 or more points, staff should administer the PHQ-9) 1 11/15/2024 Comments No Sex and Gender Information Value Date Recorded Sex Assigned at Not on file Legal Sex Female 9:23 AM SHIP MATE Gender Identity Not on file Sexual Orientation Not on file Obstetrics History Last Filed Vital Signs Vital Sign Reading Time Taken Comments Blood Pressure 112/77 11/15/2024 10:06 AM CDT Pulse 65 11/15/2024 10:06 AM CDT Temperature 36.7 C (98.1 F) 11/15/2024 10:06 AM CDT Respiratory Rate 16 11/15/2024 10:0 6 AM CDT Oxygen Saturation 98% 11/15/2024 10: 06 AM CDT Inhaled Oxygen Concentration - - Weight 135.3 kg (298 lb 4.8 oz) 025 10:06 AM CDT Height 170.2 cm (5' 7.01 ) 11/15/2024 1 0:06 AM CDT Body Mass Index 46.71 11/15/2024 10:06 AM CDT Plan of Treatment Health Maintenance Due Date Last Done Comments Cervical Cancer Screening 1988 DTaP/Tdap/Td Vaccine (6 - Tdap) 03/24/2004 03/23/2004, 03/31/1994, 11/14/1991, Additional history exists Covid-19 Vaccine ( season) 2025 09/10/2021, 08/20/2021 Postponed from 04/22/2024 (Patient declined, but will receive in the future) Depression Screening 11/15/2025 11/15/2024, 08/05/2023, 07/22/2023, Additional history exists Regular Well Visit/Exam 18-64 11/15/2025 11/15/2024, 11/15/2024, 03/29/2023, Additional history exists Hepatitis B Screening Completed [...] Procedure Name Priority Date/Time Associated Diagnosis Comments EGFR Routine 11/17/2024 7:25 AM CDT Preventative health care DIFFERENTIAL AUTO Routine 11/17/2024 7:2 5 AM CDT Preventative health care THYROID FUNCTION CASCADE Routine 11/17/2024 7:25 AM CDT Preventative health care Screening for thyroid disorder CBC WITH AUTO DIFFERENTIAL Routine 11/17/2024 7:25 AM CDT Preventative health care COMPREHENSIVE METABOLIC PANEL Routine 11/17/2024 7:25 AM CDT Preventative health care LIPID PANEL Routine 11/17/2024 7:25 AM CDT Preventative health care Screening for lipid disorders HEMOGLOBIN A1C Routine 11/17/2024 7:25 AM CDT Preventative health care Abnormal facial hair Encounter for screening examination for impaired glucose regulation and diabetes mellitus TOTAL TESTOSTERONE Routine 11/17/2024 7: 25 AM CDT Abnormal facial hair INSULIN, TOTAL Routine 11/17/2024 7:25 AM CDT Abnormal facial hair HEPATITIS PANEL, ACUTE Routine 10:37 AM CDT Healthcare maintenance Abnormal glucose affecting Lightheadedness from Last 3 Months or Most Recently Relevant to Health Maintenance Results * eGFR (11/17/2024 7:25 AM CDT) eGFR 82 >=60 mL/min/1. 73 m2 Comment: Interpretive Data Reference Interval Normal >/= 90 mL/min/1.73m2 Mildly decreased* 60 - 89 mL/min/1.73m2 Mildly to moderately decreased 45 - 59 mL/min/1.73m2 Moderately to severely decreased 30 - 44 mL/min/1.73m2 Severely decreased 15 - 29 mL/min/1.73m2 Kidney Failure < 15 mL/min/1.73m2 *Relative to young adult level Estimated glomerular filtration rate is determined by the 2020 CKD-EPI equation recommended by the National Kidney Foundation (A Unifying Approach to GFR Estimation: Recommendations of the NKF-ASK Task Force on Reassessing the Inclusion of Race in Diagnosing Kidney Disease, JASN 2020). The CKD-EPI equation should not be used for patients with unstable renal function and has not been validated in children and those over 70. Current interpretive data was last reviewed 2021. Blood 11/17/2024 7:25 AM CDT 11/17/2024 7:56 AM CDT us Lyndsey Lopez NP LAB BLOOD ORDERABLES Fi nal Result [facility] ([place]) [address] [facility] Department [place] [address] * Differential, auto (11/17/2024 7:25 AM CDT) Neutrophil abs 3.1 1.5 - 6.5 K/cumm Imm gran abs 0.0 0.0 - 0.1 K/cumm [facility] ([place]) Lymphocyte abs 1.7 0.8 - 3.3 K/cumm [facility] ([place]) Monocyte abs 0.5 0.2 - 0.8 K/cumm [facility] ([place] Eosinophil abs 0.2 0.0 - 0.5 K/cumm [facility] ([place]) Basophil abs 0.1 0.0 - 0.1 K/cumm [facility] ([place]) Neutrophil pct 56.2 % [facility] ([place]) Comment: Interpretive Data Percent cell count reference ranges are not reported, since discordance with absolute values may lead to misinterpretation of CBC data. Current Interpretive Data was last revised on 2017. Imm gran pct 0.4 % [facility] ([place]) Comment: Interpretive Data Percent cell count reference ranges are not reported, since discordance with absolute values may lead to misinterpretation of CBC data. Current Interpretive Data was last revised on 2017. Lymphocyte pct 30.7 % [facility] ([place] Comment: Interpretive Data Percent cell count reference ranges are not reported, since discordance with absolute values may lead to misinterpretation of CBC data. Current Interpretive Data was last revised on 2017. Monocyte pct 8.5 % [facility] ([place] Comment: Interpretive Data Percent cell count reference ranges are not reported, since discordance with absolute values may lead to misinterpretation of CBC data. Current Interpretive Data was last revised on 2017. Eosinophil pct 2.9 % [facility] ([place] Comment: Interpretive Data Percent cell count reference ranges are not reported, since discordance with absolute values may lead to misinterpretation of CBC data. Current Interpretive Data was last revised on 2017. Basophil pct 1.3 % [facility] ([place] Comment: Interpretive Data Percent cell count reference ranges are not reported, since discordance with absolute values may lead to misinterpretation of CBC data. Current Interpretive Data was last revised on 2017. Blood 11/17/2024 7:25 AM CDT 11/17/2024 7:56 AM CDT us Lyndsey Lopez NP LAB BLOOD ORDERABLES Fi nal Result [facility] ([place]) [address] [facility] Department [place] [address] * Thyroid Function [place] (11/17/2024 7:25 AM CDT) TSH 1.84 0.30 - 4.20 mcIUnit/mL Blood 11/17/2024 7:25 AM CDT 11/17/2024 7:56 AM CDT Lyndsey Lopez ALFALFA DEHYDRATOR OPERATOR LAB BLOOD ORDERABLES Fi nal Result Performing Organization Address City/[facility]/ZIP Co de Phone Number [facility] ([place]) [address] [facility] [place] [address] * (ABNORMAL) CBC with auto differential (11/17/2024 7:25 AM CDT) Pathologist [facility] WBC 5.4 3.8 - 9.9 K/cumm Hgb 12.4 11.9 - 15.5 g/dL [facility] ([place] Hct 38.5 35.6 - 45.5 % [facility] ([place]) Plt 226 150 - 400 K/cumm [facility] ([place] MPV 11.5 9.1 - 12.3 fL [facility] ([place] RBC 4.32 3.90 - 5.20 M/cumm [facility] ([place] MCV 89.1 81.3 - 96.4 fL [facility] ([place] MCH 28.7 27.1 - 33.3 pg [facility] ([place] MCHC 32.2(L) 32.3 - 35.7 g/dL [facility] ([place] RDW CV 13.7 11.1 - 14.9 % [facility] ([place] RDW SD 44.1 35.7 - 48.1 fL [facility] ([place] NRBC abs 0.00 0.00 - 0.01 K/cumm [facility] ([place]) Blood 11/17/2024 7:25 AM CDT 11/17/2024 7:56 AM CDT Lyndsey Lopez NP LAB BLOOD ORDERABLES Fi nal Result [facility] ([place]) [address] [place] [address] * Insulin, total (11/17/2024 7:25 AM CDT) [facility] Insulin 13.1 2.6 - 25.0 mcIUnit/mL Comment:Testing performed by : [facility], [address] [place] [address], [id number] Blood 11/17/2024 7:25 AM CDT 11/17/2024 2:02 PM CDT Lyndsey Lopez NP LAB BLOOD ORDERABLES Fi nal Result [facility] ([place]) [address] [place] [address] * (ABNORMAL) Total testosterone (11/17/2024 7:25 AM CDT) [facility] Testosterone 78(H) 8 - 48 ng/dL Comment:Testing performed by : [facility], [address] [place] [address], [id number] Blood 11/17/2024 7:25 AM CDT 11/17/2024 1:17 PM CDT Lyndsey Lopez NP LAB BLOOD ORDERABLES Fi nal Result [facility] ([place]) [address] [place] [address] * Hemoglobin A1c (11/17/2024 7:25 AM CDT) [facility] Hgb A1C 4.5 4.0 - 5.6 % Estimated Average Glucose 82 mg/dL [facility] ([place]) Comment: The ADA recommends reporting an estimated Average Glucose (eAG) with all Hemoglobin A1c results using the equation derived from a study of 507 normal and diabetic adults. Minority populations were underrepresented and children were not included. (Diabetes Care 31:3034-8283, 2008). The eAG is not equivalent to a fasting glucose. Blood 11/17/2024 7:25 AM CDT 11/17/2024 7:56 AM CDT Lyndsey Lopez NP LAB BLOOD ORDERABLES Fi nal Result [facility] ([place] 1 [facility] Department [place] [address] * (ABNORMAL) Lipid panel (11/17/2024 7:25 AM CDT) Cholesterol 135 30 - 199 mg/dL Comment: Interpretive Data Ages < or = 19 years Acceptable: <170 mg/dL Borderline high: 170-199 mg/dL High: >or= 200 mg/dL Ages > or = 20 years Desirable: <200 mg/dL Borderline high: 200-239 mg/dL High: >or= 240 mg/dL Literature References: 1. Expert Panel on Integrated Guidelines for Cardiovascular Health and Risk Reduction in Children and Adolescents. Pediatrics 2011;128:S213 2. NCEP Expert Panel. Circulation 2004;110:227 Current Interpretive Data was last revised on 2018. Triglycerides 168(H) <=149 mg/dL [facility] ([place]) Comment: Interpretive Data Ages < or = 9 years Acceptable: <75 mg/dL Borderline high: 75-99 mg/dL High: >or= 100 mg/dL Ages 10 to 20 years Acceptable: <90 mg/dL Borderline high: 90-129 mg/dL High: >or= 130 mg/dL Ages > or = 20 years Desirable: <150 mg/dL Borderline high: 150-199 mg/dL High: 200-499 mg/dL Very high: >or= 499 mg/dL Literature References: 1. Expert Panel on Integrated Guidelines for Cardiovascular Health and Risk Reduction in Children and Adolescents. Pediatrics 2011;128:S213 2. NCEP Expert Panel. Circulation 2004;110:227 Current Interpretive Data was last revised on 2018. HDL 39(L) >=40 mg/dL [facility] ([place]) Comment: Interpretive Data Ages < or = 19 years Acceptable: >45 mg/dL Borderline low: 40-45 mg/dL Low: <40 mg/dL Ages > or = 20 years Desirable: >or= 60 mg/dL Low: <40 mg/dL Literature References: 1. Expert Panel on Integrated Guidelines for Cardiovascular Health and Risk Reduction in Children and Adolescents. Pediatrics 2011;128:S213 2. NCEP Expert Panel. Circulation 2004;110:227 Current Interpretive Data was last revised on 2018. LDL, calculated 67 <=129 mg/dL [facility] ([place]) Comment: Interpretive Data Ages < or = 19 years Acceptable: <110 mg/dL Borderline high: 110-129 mg/dL High: >or= 130 mg/dL Ages > or = 20 years Optimal: <100 mg/dL Near optimal: 100-129 mg/dL Borderline high: 130-159 mg/dL High: >160 mg/dL Calculated using the Rogelio LDL-C estimating equation. This equation was implemented on 2024. Prior to this date LDL-C was estimated using the Friedewald equation. Literature References: 1. Expert Panel on Integrated Guidelines for Cardiovascular Health and Risk Reduction in Children and Adolescents. Pediatrics 2011;128:S213 2. NCEP Expert Panel. Circulation 2004;110:227 3. Rogelio Pop et al. SRAVAN Cardiol. 2019December 20;5(5):540-548. doi: 10.1001/[email or web address].2020.0013 Current Interpretive Data was last revised on 2024. Non-HDL Cholesterol 96 mg/dL [facility] ([place]) Comment: Interpretive Data Ages < or = 19 years Acceptable: <120 mg/dL Borderline high: 120-144 mg/dL High: >145 mg/dL Ages > or = 20 years When triglycerides are >200 mg/dL, Non-HDL cholesterol is a secondary target of therapy with treatment goals that are 30 mg/dL greater than the LDL cholesterol target. Literature References: 1. Expert Panel on Integrated Guidelines for Cardiovascular Health and Risk Reduction in Children and Adolescents. Pediatrics 2011;128:S213 2. NCEP Expert Panel. Circulation 2004;110:227 Current Interpretive Data was last revised on 2018. Chol/HDL ratio 3 [facility] ([place]) Blood 11/17/2024 7:25 AM CDT 11/17/2024 7:56 AM CDT Narrative [facility] ([place]) - 11/17/2024 9:10 AM CDT Has the patient been fasting for 8 hours or more?->Yes us Lyndsey Lopez NP LAB BLOOD ORDERABLES [facility] Result [facility] ([place]) 1 [facility] Department [place] [address] * (ABNORMAL) Comprehensive metabolic panel (11/17/2024 7:25 AM CDT) Sodium 141 135 - 145 mmol/L Potassium, pl 4.1 3.3 - 4.9 mmol/L [facility] ([place] Chloride 107 97 - 110 mmol/L [facility] ([place] CO2 23 22 - 32 mmol/L [facility] ([place]) Anion gap 10 2 - 15 mmol/L [facility] ([place]) BUN 6 6 - 25 mg/dL [facility] ([place]) Creatinine 0.93 0.60 - 1.10 mg/dL [facility] ([place]) Glucose 99 70 - 199 mg/dL [facility] ([place] Comment: Interpretive Data Fasting glucose >/= 126 mg/dl is diagnostic for diabetes. Fasting is defined as no caloric intake for at least 8 hours. Fasting glucose between 100 mg/dl to 125 mg/dl is diagnostic of prediabetes. In a patient with classic symptoms of hyperglycemia or hyperglycemic crisis, a random glucose >/= 200 mg/dl is diagnostic for diabetes. In the absence of unequivocal hyperglycemia, results should be confirmed by repeat testing. The classification and Diagnosis of Diabetes Diabetes Care 2021; 46: S19-S40. Current interpretive data was last revised 2022. Calcium 9.3 8.5 - 10.3 mg/dL [facility] ([place]) Bilirubin, total 0.3 0.1 - 1.2 mg/dL [facility] ([place]) Protein, pl 5.6(L) 6.5 - 8.5 g/dL [facility] ([place]) Albumin 3.6 3.5 - 5.0 g/dL [facility] ([place]) Alk phos 80 40 - 130 Units/L [facility] ([place]) ALT 16 7 - 45 Units/L [facility] ([place] AST 14 10 - 45 Units/L [facility] ([place]) Blood 11/17/2024 7:25 AM CDT 11/17/2024 7:56 AM CDT Lyndsey Lopez NP LAB BLOOD ORDERABLES Fi nal Result [facility] ([place]) 1 [facility] Department [place] [address] * Hepatitis panel, acute (04/01/2023 10:37 AM CDT) Hep A IgM Nonreactive Nonreactive RENEE [facility] (SEVEN) Comment: Interpretive Data: If Hep A IgM Ab is reported as Equivocal, a new sample should be drawn in two weeks for testing. Current interpretive data was last revised on 19. Testing performed by: [address] [address] Hep B core IgM Nonreactive Nonreactive C ARNOLDO GAR (SEVEN) Comment: Interpretive Data If HepB Core IgM Ab is reported as Equivocal, a new sample should be drawn in two weeks for testing. Current interpretive data was last revised on 19. Testing performed by: [address] [address] Hep C Ab Nonreactive Nonreactive RENEE GAR [...] last revised on 2019. Testing performed by: [address] [address] HepBsAg Nonreactive Nonreactive RENEE GAR (SEVEN) Comment:Testing performed by : [address] [address] Blood 04/01/2023 10:3 7 AM CDT 04/01/2023 3:48 PM CDT us Sydnee Connell NP LAB MICROBIOLOGY - GENERAL ORD ERABLES Final Result [facility] (WAYNE) 1 [facility] Department [place] [address] from Last 3 Months or Most Recently Relevant to Health Maintenance Insurance [employer] [place] [employer] [place] [place] Care Teams Banquet Stewardess Relationship Specialty Start Date End Date Lyndsey Lopez NP [address] [address] [facility] [place] [address] PCP - General Family Medicine 11/15/24
--- OUTSIDE RECORDS SUMMARY | 2024-12-07 15:20 | XMS_ITS | Clinical Summary ---
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
--- OUTSIDE RECORDS SUMMARY | 2024-12-07 15:20 | XMS_ITS | Referral Summary ---
Author Organization [facility] Address [address] [place] [address] Phone Care Team Providers Care Job Developer Name Role Phone Lyndsey Lopez NP Primary Care Provider Encounters Date Type Department Care Team Description 11/29/2024 Telephone [facility] Primary Care at [address] [place] [phone] Lyndsey Lopez, JANELLE Prior Auth (Medication Nurtec) 11/29/2024 Orders Only [facility] Primary Care at [address] [place] [phone] Lyndsey Lopez NP Intractable episodic cluster headache 11/20/2024 Results Follow-Up [facility] Primary Care at [address] [place] [phone] Lyndsey Lopez, JANELLE Abnormal facial hair (Primary Dx) 11/17/2024 7:10 AM CDT Lab [address] [phone] Abnormal facial hair; Preventative health care; Encounter for screening examination for impaired glucose regulation and diabetes mellitus; Screening for lipid disorders; Screening for thyroid disorder 11/15/2024 Telephone [facility] Primary Care at [address] [place] [phone] Lyndsey Lopez, JANELLE Prior Auth-rimegepant (NURTEC ODT). 11/15/2024 Orders Only [facility] Primary Care at [address] [place] [phone] Lyndsey Lopez NP Well woman exam (Primary Dx) 11/15/2024 10:00 AM CDT Office Visit [facility] Primary Care at [address] [phone] Lyndsey Lopez NP Establishing care with new [...] for thyroid disorder; Screening for lipid disorders from Last 3 Months Allergies No known active allergies Medications dicyclomine [...] re-evaluation Assessment & Plan (07/23/2023 5:22 AM SIX COLOR PRESS OPERATOR): Acute on chronic problem- worsening Not at [...] plan Assessment & Plan (08/05/2023 2:48 PM SIX COLOR PRESS OPERATOR): Acute on chronic problem- this is recurring problem that is normally well controlled without medication Continue Sumatriptan 50 mg- take half tablet (25 mg)at onset of headache, if not resolved after 2 hours may repeat dose-take as directed Follow up in 3 [id number] Patient educated on medication and side effects Assessment & Plan (07/23/2023 5:18 AM SIX COLOR PRESS OPERATOR): Acute on chronic problem- this is recurring problem that is normally well controlled without medication Patient has hx of cluster headaches-had tried Maxalt in the past and did not tolerate the medication Will trial Sumatriptan 50 mg- take 1 tablet at onset of headache, if not resolved after 2 hours may repeat dose-take as directed Follow up in 6 [id number] Patient educated on medication and side effects Influenza vaccine needed 07/22/2023 Assessment & Plan (07/23/2023 5:11 AM SIX COLOR PRESS OPERATOR): Ordered and administered this visit after patient verbally agreed to receive Depression with anxiety 03/29/2023 Assessment & Plan (11/15/2024 10:41 AM CDT): -chronic, controlled -patient currently takes Lexapro 10 mg daily -patient denies any worsening of depressed mood, thoughts of harming themselves or others, or worsening anxiety -refill of medication provided -continue current treatment plan Assessment & Plan (08/05/2023 2:48 PM SIX COLOR PRESS OPERATOR): Acute problem- improving, not at goal Continue with Lexapro 10 mg- 1 tablet daily Continue to monitor Patient reiterated no suicidal thoughts at this time; take medication as directed; contact 911 and go to the ER if becomes suicidal Assessment & Plan (07/23/2023 5:21 AM SIX COLOR PRESS OPERATOR): Acute problem- improving, not at goal Continue [...] 03/29/2023 Assessment & Plan (08/05/2023 2:45 PM SIX COLOR PRESS OPERATOR): Acute on chronic problem- episodic and worsening [...] week Assessment & Plan (07/23/2023 5:19 AM SIX COLOR PRESS OPERATOR): Acute on chronic problem- episodic and worsening [...] plan Assessment & Plan (07/23/2023 5:15 AM SIX COLOR PRESS OPERATOR): HPI: Condition is stable Continue on current [...] unsure) Fasting labs ordered Consult placed for Business Intelligence Director Follow up in 2 weeks- depression, new [...] Smoking Tobacco: Former Cigarettes 0.3 17 2 004 - 2020 AUDIT-C Answer Date Recorded Q1: [...] on file Legal Sex Female 9:23 AM 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 The CKD-EPI equation should not be used for patients with unstable renal function and has not been validated in children and those over 70. Current interpretive data was last reviewed 2021. Blood 11/17/2024 7:25 AM CDT 11/17/2024 7:56 AM CDT us Lyndsey Lopez NP LAB BLOOD ORDERABLES Fi nal Result RENEE GAR ABERCROMBIE) 7 [facility] [place] [address] * Differential, auto (11/17/2024 7:25 AM CDT) Neutrophil abs 3.1 1.5 - 6.5 K/cumm Imm gran abs 0.0 0.0 - 0.1 K/cumm [facility] (SEVEN) Lymphocyte abs 1.7 0.8 - 3.3 K/cumm [facility] (SEVEN) Monocyte abs 0.5 0.2 - 0.8 K/cumm [facility] (SEVEN) Eosinophil abs 0.2 0.0 - 0.5 K/cumm [...] Fi nal Result RENEE GAR (SEVEN) 1 [facility] [place] [address] * Thyroid Function Deary (11/17/2024 7:25 AM CDT) [facility] TSH 1.84 0.30 - 4.20 mcIUnit/mL Blood 11/17/2024 7:25 AM CDT 11/17/2024 7:56 AM CDT Lyndsey Lopez NP LAB BLOOD ORDERABLES Fi nal Result Performing Organization Address City/[facility] Co de Phone Number RENEE GAR (SEVEN) 1 [facility] [place] [address] * (ABNORMAL) CBC with auto differential (11/17/2024 7:25 AM CDT) [facility] WBC 5.4 3.8 - 9.9 K/cumm Hgb [...] BLOOD ORDERABLES Fi nal Result RENEE G[facility] (ABERCROMBIE) 1 [facility] Department [place] [address] * Insulin, total (11/17/2024 7:25 AM CDT) Pathologist [facility] Insulin 13.1 2.6 - 25.0 mcIUnit/mL Comment:Testing performed by : [facility], [address] [place] [address], [id number] Blood 11/17/2024 7:25 AM CDT 11/17/2024 2:02 PM CDT Lyndsey Lopez NP LAB BLOOD ORDERABLES Fi nal Result Performing Organization Address [facility]/ZIP Co de Phone Number RENEE GAR (ABERCROMBIE) 1 [facility] [place] [address] * (ABNORMAL) Total testosterone (11/17/2024 7:25 AM CDT) Pathologist [facility] Testosterone 78(H) 8 - 48 ng/dL Comment:Testing performed by : [facility], [address] [place] [address]., [id number] Blood 11/17/2024 7:25 AM CDT 11/17/2024 1:17 PM CDT Lyndsey Lopez BLIND ESCORT LAB BLOOD ORDERABLES Fi nal Result RENEE GAR (ABERCROMBIE) 1 [facility] [place] [address] * Hemoglobin A1c (11/17/2024 7:25 AM CDT) Hgb A1C 4.5 4.0 - 5.6 % Estimated Average Glucose 82 mg/dL RODNEYARMIDA RIN (ABERCROMBIE) Comment: The ADA recommends reporting an estimated Average Glucose (eAG) with all Hemoglobin A1c results using the equation derived from a study of 507 normal and diabetic adults. Minority populations were underrepresented and children were not included. (Diabetes Care 31:2983-7370, 2008). The eAG is not equivalent to a fasting glucose. Blood 11/17/2024 7:25 AM CDT 11/17/2024 7:56 AM CDT Lyndsey Lopez NP LAB BLOOD ORDERABLES nal Result RENEE GAR (ABERCROMBIE) 1 [facility] Department of Laboratories [place], [place] [id number] * (ABNORMAL) Lipid panel (11/17/2024 7:25 AM [...] last revised on 2018. Chol/HDL ratio 3 [facility] (SEVEN) Blood 11/17/2024 7:25 AM CDT 11/17/2024 7:56 AM CDT Narrative [facility] (SEVEN) - 11/17/2024 9:10 AM CDT Has the patient been fasting for 8 hours or more?->Yes Lyndsey Lopez NP LAB BLOOD ORDERABLES nal Result [facility] (SEVEN) 1 [facility] Department [place] [address] * (ABNORMAL) Comprehensive metabolic panel (11/17/2024 7:25 [...] classification and Diagnosis of Diabetes Diabetes Care 202; 46: S19-S40. Current interpretive data was last [...] (SEVEN) AST 14 10 - 45 Units/L [facility] (SEVEN) Blood 11/17/2024 7:25 AM CDT 11/17/2024 7:56 AM CDT us Lyndsey Lopez NP LAB BLOOD ORDERABLES nal Result [facility] (SEVEN) 1 [facility] Department [place] [address] * Hepatitis panel, acute (04/01/2023 10:37 AM CDT) Hep A IgM Nonreactive Nonreactive [facility] (SEVEN) Comment: Interpretive Data: If Hep A IgM Ab is reported as Equivocal, a new sample should be drawn in two weeks for testing. Current interpretive data was last revised on 19. Testing performed by: [address] [address] Hep B core IgM Nonreactive Nonreactive [facility] (SEVEN) Comment: Interpretive Data If HepB Core IgM Ab is reported as Equivocal, a new sample should be drawn in two weeks for testing. Current interpretive data was last revised on 19. Testing performed by: [address] [address] Hep C Ab Nonreactive Nonreactive [facility] (SEVEN) Comment: Interpretive Data Nonreactive: Antibodies to [...] last revised on 2019. Testing performed by: [address], [place]., [address] HepBsAg Nonreactive Nonreactive RENEE GAR (SEVEN) Comment:Testing performed by : [facility], [address] [place] [address]., [address] Blood 04/01/2023 10:3 7 AM CDT 04/01/2023 3:48 PM CDT Sydnee Connell NP LAB MICROBIOLOGY - GENERAL ORD ERABLES Final Result RENEE GAR (SEVEN) 1 [facility] Department of Laboratories [place], [place] [id number] from Last 3 Months or Most Recently Relevant to Health Maintenance Insurance [facility] Care Teams Job Developer Relationship Specialty Start Date End Date Lyndsey Lopez, BLIND ESCORT [address] [place] [id number] PCP - General Family Medicine 11/15/24
--- OUTSIDE RECORDS SUMMARY | 2024-12-07 15:20 | XMS_ITS | Clinical Summary ---
Author Organization [facility] Address [address] [place] [address] Phone Care Team Providers Care Lumber Checker Name Role Phone Provider, None Primary Care [...] Insurance MEDICAID [employer]ET[employer] BETTER [employer] Care Teams Lumber Checker Relationship Specialty Start Date End Date Provider, None [place] PCP - General 01/31/21
[2024-12-07 15:34] VITALS: BP 118/75; PULSE 90; RESP 16; TEMP 36.2; O2SAT 98
[2024-12-07 15:55] LABS: EDSTREPNEGPOS1 Negative (Negative)
--- NOTE | 2024-12-07 15:58 | ED_ITS ---
HPI - URI/Sore Throat General Chief Complaint: Upper Respiratory Infection Stated Complaint: Sore Throat/Headache Time Seen by Provider: 12/07/24 15:40 Source: patient, RN notes reviewed and old records reviewed Mode of arrival: ambulatory Limitations: no limitations History of Present Illness HPI Narrative: 34 year old female who presents to [facility] care with complaints of sore throat and headache that started 2 days ago. Patient reports that daughter tested positive for strep and is presently on antibiotic. Patient reports that she has been taking Tylenol for her discomfort, denies any known fevers MD elicited complaint: cough, sore throat and other (headache) Onset (ago): day(s) (2) Pain scale (0-10): 5 Able to tolerate fluids by mouth: Yes Treatments prior to arrival: acetaminophen Related Data Home Medications ?Medication ?Instructions ?Recorded ?Confirmed ?Last Taken ?Type escitalopram oxalate 10 mg tablet mg 10/11/24 Unknown History pantoprazole 40 mg tablet,delayed mg PO 10/11/24 Unknown History release spironolactone 50 mg tablet mg 12/07/24 Unknown History topiramate 25 mg tablet mg 12/07/24 Unknown History Allergies Allergy/AdvReac Type Severity Reaction Status Date / Time No Known Allergies Allergy Verified 12/07/24 15:33 Review of Systems Review of Systems: CONSTITUTIONAL: Denies malaise, chills, sweats, or fever. EYES: Denies visual changes, redness, or discharge. ENT: Reports rhinorrhea, congestion, no sinus pain, no otalgia and positive for sore throat. CARDIOVASCULAR: Denies chest pain, palpitations, or edema. RESPIRATORY: Reports no cough.? Denies dyspnea. GASTROINTESTINAL: Denies abdominal pain, nausea, vomiting, diarrhea SKIN: Denies rash or itching. MUSCULOSKELETAL: Denies myalgia. NEUROLOGIC: Reports headache. All systems reviewed & are unremarkable except as noted in HPI and below PMFSH Past Medical History Medical History Anxiety and depression GERD (gastroesophageal reflux disease) Surgical History Surgical History History of dental surgery molars removed No pertinent past surgical history Family History Family History Mother Celiac disease Father Diabetes mellitus Grandparent Diabetes mellitus Grandparent Diabetes mellitus Grandparent Diabetes mellitus Social History Social History Smoking packs per day: 0.5 Smoking cigarettes per day: 10.0 Smoking status: Former smoker Tobacco type: cigarettes Second hand tobacco smoke exposure: No Substance use: never Spiritual care concerns: No Comments At time of signature, agree with nursing past medical, surgical, social and family history. There is no relevant family history pertinent to the presenting complaint Exam Narrative: GENERAL: Well-appearing, well-nourished, and in no acute distress. HEAD: Normocephalic EYES: PERRLA, conjunctivae clear ENT: Nares clear, turbinates edematous and erythematous, clear discharge. Mucous membranes moist. TM pearly walters with dull light reflex bilaterally; no tragal tenderness. Oropharynx erythematous without lesions. Tonsils not enlarged and without exudate, no drooling, no hoarseness, no trismus, uvula midline.post nasal drainage NECK: Supple. No lymphadenopathy CHEST: Clear to auscultation, breath sounds equal. No wheezing, rhonchi, rales, or stridor. No respiratory distress, speaks in full sentences.no cough noted SAO2 98% on room air HEART: Regular rate and rhythm. No murmur heard. SKIN: Warm, dry, no rash. NEURO: Alert and oriented x3. PSYCH: Normal mood and affect Course Course Emergency Course: Patient is aware of diagnosis, understands and agrees to treatment plan.? Anticipatory guidance given.? Patient agrees to follow-up as directed and is aware of reasons to seek care at the emergency department. Portions of this record may have been created with voice recognition software Level of Care: Express Care Visit Vital Signs Vital signs: Vital Signs Temperature 36.2 C L 12/07/24 15:34 Pulse Rate 90 12/07/24 15:34 Respiratory Rate 16 12/07/24 15:34 Blood Pressure 118/75 12/07/24 15:34 Pulse Oximetry 98 12/07/24 15:34 Oxygen Delivery Room Air 12/07/24 15:34 Temperature 36.2 C L 12/07/24 15:34 Pulse Rate 90 12/07/24 15:34 Respiratory Rate 16 12/07/24 15:34 Blood Pressure 118/75 12/07/24 15:34 Pulse Oximetry 98 12/07/24 15:34 Oxygen Delivery Room Air 12/07/24 15:34 Reviewed MDM - URI/Sore Throat MDM Narrative Medical decision making narrative: Differential diagnosis considered: Louis virus, strep pharyngitis, allergic rhinitis, upper respiratory tract infection, sinusitis, rhinosinusitis, nasopharyngitis. viral pharyngitis, otitis media, otitis externa, pneumonia, bronchitis, viral cough syndrome, viral syndrome, and influenza.? Exam findings show no acute concerns or changes; patient is non-toxic appearing and is in no distress.? Patient is appropriate for outpatient treatment and follow-up. Differential Diagnosis Differential diagnosis: Likely upper respiratory infection, viral infection, pharyngitis and other (strep pharyngitis, exposure to strep) Medical Records Attestation: I reviewed the patient's medical records. Lab Data Attestation: I reviewed the patient's lab results. Lab results narrative: strep screen negative, culture sent Labs: Lab Results 12/07/24 Range/Units 15:53 POC Grp A Strep Screen Negative (Negative) Critical Care Time Critical Care Time Critical Care Time: No Discharge Plan Discharge Clinical Impression: Exposure to strep throat Pharyngitis Qualifiers: Pharyngitis/tonsillitis etiology: unspecified etiology Qualified Code(s): J02.9 - Acute pharyngitis, unspecified Patient Disposition: Home Condition: Stable Instructions: Antibiotic Form, Pharyngitis (ED) Additional Instructions: Throw away your current toothbrush and begin using a new toothbrush in 48 hours in order to prevent re-infection. Sanitize all reusable water bottles . Do not share items with others. Salt water gargles may alleviate some of the throat discomfort. You can take Tylenol or ibuprofen per the package instructions for pain/fever. Zyrtec Claritin or Silvana daily If your symptoms persist, change or worsen significantly before you can contact your personal physician then please, without delay, go to the emergency department for further evaluation. Follow-up with PCP in 7-10 days or sooner if needed Your strep test today was negative. A throat culture will be sent to the [facility] for further testing. IF the test is positive, you will receive a phone call within 48 hours and an appropriate antibiotic will be initiated at that time. Patient Language: Bermudian Prescriptions: No Action pantoprazole 40 mg tablet,delayed release (DR/EC) PO escitalopram oxalate 10 mg tablet topiramate 25 mg tablet spironolactone 50 mg tablet Follow-up/Referrals: UNKNOWN,DOCTOR [Primary Care Provider] - Time of Disposition: 16:00 Quality E[place] Coma Scale Eyes: Open Verbal: Oriented and Alert Motor: Follows Commands E[place] Coma Total Score: 15
== END 2024-12-07 16:09 | disposition home or self-care (01) ==
PROVIDERS: Emergency Provider Registered Nurse
DX: J02.9 Acute pharyngitis, unspecified (principal); Z20.818 Contact with and (suspected) exposure to other bacterial communicable diseases; Z87.891 Personal history of nicotine dependence; K21.9 Gastro-esophageal reflux disease without esophagitis
CPT/HCPCS: 87081; 87880; 99213; G0463